=== PATIENT | male | born 1975 | race Caucasian/White ===

== ENCOUNTER 2019-01-19 13:19 | Emergency (ER) | payer OTHER ==
[~2019-01-19] VITALS: Ht 170.2 cm; Wt 78.0 kg
[2019-01-19 13:40] VITALS: BP 140/87
[2019-01-19] MEDS ORDERED: SODIUM CHLORIDE FLUSH 10 ML SYR IVF STA (13:43)
--- NOTE | 2019-01-19 13:43 | NUR ---
PT SENT TO ER LOBBY TO WAIT FOR AVAILABLE BED.
--- NOTE | 2019-01-19 14:09 | NUR ---
PT AMBULATED TO ER BED 2
[2019-01-19 14:15] LABS: APPEARANCE,URINE CLEAR (CLEAR); BILIRUBIN,URINE NEGATIVE (NEGATIVE); BLOOD, URINE NEGATIVE (NEGATIVE); COLOR,URINE YELLOW (YELLOW); LEUKOCYTE ESTERASE ,URINE TRACE (NEGATIVE); NITRITE, URINE NEGATIVE (NEGATIVE); PH,URINE 6.5 (5.0-9.0); UGLUCOSE NEGATIVE (NEGATIVE)
[2019-01-19 14:16] LABS: BASOPHILS # (AUTO) 0.1 K/uL (0.00-0.22); EOSINOPHILS # (AUTO) 0.2 K/uL (0-0.4); LYMPHOCYTES % (AUTO) 20.2 % (20.5-51.1)
[2019-01-19 14:22] LABS: BASOPHILS % (AUTO) 0.7 % (0.0-2.0); HEMATOCRIT 40.6 % (36-52); HEMOGLOBIN 13.4 g/dL (12.0-18.0); LYMPHOCYTES # (AUTO) 1.7 K/uL (2.0-11.5); MEAN CORPUSCULAR HEMOGLOBIN 31 pg (27-31); MEAN CORPUSCULAR HGB CONC 33 g/dL (33-37); MEAN CORPUSCULAR VOLUME 94.7 fL (80-94); NEUTROPHILS # (AUTO) 5.6 K/uL (1.8-7.7); NEUTROPHILS % (AUTO) 65.1 % (42.2-75.2); PLATELET COUNT (AUTO) 130 K/uL (140-450); RED BLOOD CELL COUNT(AUTO) 4.28 MIL/uL (4.20-6.10); RED CELL DISTRIBUTION WIDTH 15.5 % (11.6-13.7); WHITE BLOOD COUNT (AUTO) 8.6 K/uL (4.8-10.8)
[2019-01-19 14:29] LABS: ANION GAP 12.5 (8-16); CARBON DIOXIDE 28.1 mmol/L (21-32); CREATININE 0.6 mg/dL (0.7-1.3); POTASSIUM 3.6 mmol/L (3.5-5.1)
[2019-01-19 14:31] LABS: RBC,URINE NONE SEEN /HPF (0-5); WBC,URINE 0-5 /HPF (0-5)
[2019-01-19 14:35] LABS: ALBUMIN 3.5 g/dL (3.4-5.0); TOTAL BILIRUBIN 1.1 mg/dL (0.0-1.0)
--- NOTE | 2019-01-19 14:35 | NUR ---
PT PRESENTS TO THE ED WITH C/O PAIN AT UMBILICUS AND GROIN FOR 3 MONTHS THAT HE BELIEVES IS A HERNIA. PT STATES PAIN IS "BURNING" AND RATES PAIN 6/10 AT THIS TIME. PT STATES THAT HE DRINK ALCOHOL DAILY AND EXPERIENCES NAUSEA EVERY MORNING. PT DENIES SOB, FEVER, AND COUGH AT THIS TIME. PT IS A/OX4 AND PRESENTS WITH A CLEAR SPEECH. SKIN IS WARM, PINK, AND DRY. FAMILY MEMBER AT BEDSIDE. PT IS POSITIONED FOR COMFORT, BED RAIL UP X 1. ER MD AWARE OF PT STATUS. INO HX: DENIES RX: DENIES
--- NOTE | 2019-01-19 15:48 | NUR ---
Patient returned from CT scan. RN re-evaluating patient at bedside.
--- NOTE | 2019-01-19 16:25 | NUR ---
PT RESTING WITH FAMILY MEMBERS AT BEDSIDE. WILL CONTINUE TO MONITOR.
--- NOTE | 2019-01-19 16:39 | NUR ---
Patient being evaluated by DR. ORTIZ at bedside.
[2019-01-19 18:18] VITALS: BP 136/82
== END 2019-01-19 18:17 | disposition home or self-care (01) ==
LOC: MED 13:19
DX: R10.9 Unspecified abdominal pain (principal); K40.90 Unilateral inguinal hernia, without obstruction or gangrene, not specified as recurrent
CPT/HCPCS: 36415; 74177; 80053; 81001; 83690; 85025; 99284; Q9967

== ENCOUNTER 2019-03-07 14:04 | Emergency (ER) | payer OTHER ==
[~2019-03-07] VITALS: Ht 170.2 cm; Wt 73.9 kg
[2019-03-07 14:13] VITALS: BP 133/75
--- NOTE | 2019-03-07 14:18 | NUR ---
Patient ambulated to bed 9 with family. RN evaluating patient at bedside.
--- NOTE | 2019-03-07 14:21 | NUR ---
Dr. Alarcon is evaluating the patient at bedside.
[2019-03-07] MEDS ORDERED: NACL 0.9% 1,000 ML IV ONE (14:29)
[2019-03-07] MEDS ORDERED: NACL 0.9% 1,000 ML IV SCH (14:29)
[2019-03-07] MEDS ORDERED: ONDANSETRON 4 MG/2 ML VIAL IVP ONE (14:30)
[2019-03-07] MEDS ORDERED: KETOROLAC 30 MG/ML VIAL IVP ONE (14:30)
[2019-03-07] MEDS ORDERED: MORPHINE SULFATE 4 MG/ML SYR IVP ONE (14:30)
--- NOTE | 2019-03-07 14:31 | NUR ---
43/M BIB FAMILY C/O RT GROIN PAIN. PT HAD A RT GROIN AND UMBILICAL HERNIA REPAIR 02/24/19 AND STATES THE PAIN GOT BETTER AT FIRST BUT THEN STARTED TO GET WORSE YESTERDAY, ALONG WITH RT GROIN/TESTICULAR SWELLING. PT ALSO REPORTS ABDOMINAL BRUISING. PAIN 12/18, CONSTANT. ECCHYMOSIS ON RT FLANK. HX:NONE RX: NORCO FOR PAIN POST OP, BUT IS OUT OF MEDICATION Addendum: 03/07/19 at 1852 by MAYANK RT INGUINAL AND UMBILICAL HERNIA REPAIR
--- NOTE | 2019-03-07 14:51 | NUR ---
METER/RELAY TECHNICIAN AT BEDSIDE EXPLAINING PROCESS FOR CONTRAST/CT SCAN
[2019-03-07 15:20] LABS: BASOPHILS # (AUTO) 0.1 K/uL (0.00-0.22); BASOPHILS % (AUTO) 0.8 % (0.0-2.0); EOSINOPHILS # (AUTO) 0.2 K/uL (0-0.4); EOSINOPHILS % (AUTO) 2.4 % (0.0-4.0); HEMATOCRIT 29.9 % (36-52); HEMOGLOBIN 9.9 g/dL (12.0-18.0); LYMPHOCYTES # (AUTO) 1.4 K/uL (2.0-11.5); LYMPHOCYTES % (AUTO) 17.9 % (20.5-51.1); MEAN CORPUSCULAR HEMOGLOBIN 31 pg (27-31); MEAN CORPUSCULAR HGB CONC 33 g/dL (33-37); MEAN CORPUSCULAR VOLUME 94.3 fL (80-94); NEUTROPHILS % (AUTO) 65.9 % (42.2-75.2); PLATELET COUNT (AUTO) 447 K/uL (140-450); RED BLOOD CELL COUNT(AUTO) 3.17 MIL/uL (4.20-6.10); RED CELL DISTRIBUTION WIDTH 15.2 % (11.6-13.7); WHITE BLOOD COUNT (AUTO) 7.6 K/uL (4.8-10.8)
[2019-03-07 15:27] LABS: APPEARANCE,URINE CLEAR (CLEAR); BILIRUBIN,URINE 1+ (NEGATIVE); BLOOD, URINE NEGATIVE (NEGATIVE); COLOR,URINE YELLOW (YELLOW); LEUKOCYTE ESTERASE ,URINE NEGATIVE (NEGATIVE); NITRITE, URINE NEGATIVE (NEGATIVE); UGLUCOSE NEGATIVE (NEGATIVE)
[2019-03-07 16:06] LABS: ALBUMIN 3.2 g/dL (3.4-5.0); CARBON DIOXIDE 23.9 mmol/L (21-32); CREATININE 0.7 mg/dL (0.7-1.3); POTASSIUM 3.9 mmol/L (3.5-5.1); TOTAL BILIRUBIN 1.8 mg/dL (0.0-1.0)
--- NOTE | 2019-03-07 17:10 | NUR ---
PT TO CT SCAN VIA W/C
--- NOTE | 2019-03-07 17:10 | NUR ---
PT TAKEN TO CT
--- NOTE | 2019-03-07 18:49 | NUR ---
DR FREEMAN SPEAKING W/ PT AT BEDSIDE
[2019-03-07 19:14] VITALS: BP 110/65
--- NOTE | 2019-03-07 19:14 | NUR ---
PT DISCHARGED WITH PAPERWORK. EDUCATED PT REGARDING MEDICATIONS AND D/C DIAGNOSIS. PT VERBALIZED UNDERSTANDING OF TEACHING. TOLD PT TO FOLLOW UP WITH PCP AND WHEN TO RETURN TO ED. PT AT STABLE CONDITION. ALL QUESTIONS ANSWERED.
== END 2019-03-07 19:14 | disposition home or self-care (01) ==
LOC: MED 14:04
DX: N99.840 Postprocedural hematoma of a genitourinary system organ or structure following a genitourinary system procedure (principal); Z98.890 Other specified postprocedural states
CPT/HCPCS: 36415; 74177; 80053; 81003; 82150; 83690; 85025; 96374; 96375; 99285; J1885; J2270; J2405; J7030; Q9967

== ENCOUNTER 2020-01-08 10:01 | Emergency (ER) | payer MEDICAID, OTHER ==
[~2020-01-08] VITALS: Ht 169.5 cm; Wt 75.7 kg
--- NOTE | 2020-01-08 10:05 | NUR ---
Patient ambulated to bed 11. RN evaluating patient at bedside.
[2020-01-08 10:11] VITALS: BP 137/82
--- NOTE | 2020-01-08 10:11 | NUR ---
44 y/o male from home c/o generalized weakness and unable to see when its dark in bilateral eyes x 3 days. Pt states when it gets dark he is unable to see, but when he turns the light on he can see. Denies pain in eyes. C/O generalized body weakness with shakiness to bilateral arms. States he has not been able to sleep in 3 night. "it feels like i have anaya in my eyes. medhx: denies
--- NOTE | 2020-01-08 10:20 | NUR ---
Dr. Diehl is evaluating the patient at bedside.
--- NOTE | 2020-01-08 10:36 | NUR ---
Lab at bedside for blood draw
[2020-01-08 10:44] LABS: BASOPHILS # (AUTO) 0.1 K/uL (0.00-0.22); BASOPHILS % (AUTO) 0.6 % (0.0-2.0); EOSINOPHILS % (AUTO) 0.5 % (0.0-4.0); HEMATOCRIT 33.1 % (36-52); MEAN CORPUSCULAR HEMOGLOBIN 31 pg (27-31); MEAN CORPUSCULAR HGB CONC 33 g/dL (33-37); MEAN CORPUSCULAR VOLUME 93.9 fL (80-94); MONOCYTES # (AUTO) 1.3 K/uL (0.8-1.0); MONOCYTES % (AUTO) 14.2 % (1.7-9.3); NEUTROPHILS # (AUTO) 6.7 K/uL (1.8-7.7); NEUTROPHILS % (AUTO) 73.7 % (42.2-75.2); PLATELET COUNT (AUTO) 62 K/uL (140-450); RED BLOOD CELL COUNT(AUTO) 3.52 MIL/uL (4.20-6.10); RED CELL DISTRIBUTION WIDTH 16.6 % (11.6-13.7); WHITE BLOOD COUNT (AUTO) 9.1 K/uL (4.8-10.8)
[2020-01-08 11:02] LABS: ANION GAP 15.6 (8-16); CARBON DIOXIDE 23.8 mmol/L (21-32); CREATININE 0.6 mg/dL (0.6-1.3); POTASSIUM 3.4 mmol/L (3.5-5.1)
[2020-01-08 11:12] LABS: ALBUMIN 2.5 g/dL (3.4-5.0); BILIRUBIN,DIRECT 2.9 mg/dL (0.0-0.3); TOTAL BILIRUBIN 4.1 mg/dL (0.0-1.0)
--- NOTE | 2020-01-08 11:29 | NUR ---
Patient taken to CT scan via wheelchair by tech.
--- NOTE | 2020-01-08 11:35 | NUR ---
Patient returned from CT scan.
--- NOTE | 2020-01-08 11:59 | NUR ---
Ultrasound at bedside
[2020-01-08] MEDS ORDERED: chlordiazePOXIDE 25 MG CAP PO SCH (13:00)
[2020-01-08 13:33] VITALS: BP 134/88
--- NOTE | 2020-01-08 13:34 | NUR ---
Patient discharged with v/s stable. Written and verbal after care instructions given and explained. Patient verbalized understanding. Ambulatory with steady gait. All questions addressed prior to discharge. Advised to follow up with PMD. Pt given note for work through 01/15.
== END 2020-01-08 13:34 | disposition home or self-care (01) ==
LOC: MED 10:01
DX: R51.9 Headache, unspecified (principal); K70.30 Alcoholic cirrhosis of liver without ascites; H25.9 Unspecified age-related cataract; F10.99 Alcohol use, unspecified with unspecified alcohol-induced disorder
CPT/HCPCS: 36415; 70450; 76705; 80048; 80076; 85025; 99285; Q0092

== ENCOUNTER 2020-03-18 00:55 | Emergency (ER) | payer SELFPAY ==
[~2020-03-18] VITALS: Ht 160 cm; Wt 70.3 kg
--- NOTE | 2020-03-18 01:22 | NUR ---
Pt BIBA and taken to bed 14.
--- NOTE | 2020-03-18 01:35 | NUR ---
Blood labs collected and handed to Gabriella Singleton tech.
--- NOTE | 2020-03-18 01:36 | NUR ---
ciwa score of 7 noted at this time.
[2020-03-18 01:41] VITALS: BP 127/79
[2020-03-18 01:44] LABS: BASOPHILS % (AUTO) 0.5 % (0.0-2.0); EOSINOPHILS # (AUTO) 0.1 K/uL (0-0.4); EOSINOPHILS % (AUTO) 1.1 % (0.0-4.0); HEMATOCRIT 31.6 % (36-52); HEMOGLOBIN 10.3 g/dL (12.0-18.0); LYMPHOCYTES # (AUTO) 0.8 K/uL (2.0-11.5); LYMPHOCYTES % (AUTO) 12.6 % (20.5-51.1); MEAN CORPUSCULAR HEMOGLOBIN 30 pg (27-31); MEAN CORPUSCULAR HGB CONC 33 g/dL (33-37); MONOCYTES # (AUTO) 0.8 K/uL (0.8-1.0); MONOCYTES % (AUTO) 12.2 % (1.7-9.3); NEUTROPHILS # (AUTO) 4.6 K/uL (1.8-7.7); NEUTROPHILS % (AUTO) 73.6 % (42.2-75.2); PLATELET COUNT (AUTO) 51 K/uL (140-450); RED BLOOD CELL COUNT(AUTO) 3.44 MIL/uL (4.20-6.10); RED CELL DISTRIBUTION WIDTH 18.7 % (11.6-13.7); WHITE BLOOD COUNT (AUTO) 6.2 K/uL (4.8-10.8)
--- NOTE | 2020-03-18 01:44 | NUR ---
44 YO MALE BIBA FROM HOME.PATIENT PRESENTS TO ED WITH WITNESSED SZ. PT STATES HE DRINKS "ALOT' OF ALCOHOL BUT HAS NOT HAD A DRINK IN 2 DAYS. DENIES N/V/D; SKIN IS PINK/WARM/DRY; AAOX4 WITH EVEN AND STEADY GAIT; LUNGS CLEAR BL; HR EVEN AND REGULAR; PT DENIES ANY FEVER, CP, SOB, OR COUGH AT THIS TIME; PATIENT STATES PAIN OF 0/10 AT THIS TIME; VSS; PATIENT POSITIONED FOR COMFORT; HOB ELEVATED; BEDRAILS UP X2; BED DOWN. ER MD MADE AWARE OF PT STATUS. NO PMH AND NO RX
[2020-03-18 01:58] LABS: ALBUMIN 2.6 g/dL (3.4-5.0); ASPARTATE AMINOTRANSFERASE 65 U/L (15-37); CARBON DIOXIDE 24.7 mmol/L (21-32); CHLORIDE 99 mmol/L (98-107); CREATININE 0.8 mg/dL (0.6-1.3); GFR ARICAN-AMERICAN 134 mL/min (>90); GLUCOSE 132 mg/dL (74-106); MAGNESIUM 2.3 mg/dL (1.8-2.4); SODIUM SERUM 133 mmol/L (136-145); TOTAL BILIRUBIN 4.8 mg/dL (0.0-1.0); UREA NITROGEN, BLOOD 9 mg/dL (7-18)
[2020-03-18 02:06] LABS: POTASSIUM 2.7 mmol/L (3.5-5.1)
[2020-03-18 03:15] LABS: PROTHROMBIN TIME 19.6 secs (10.8-13.4)
[2020-03-18] MEDS: FOLIC ACID 1 MG TAB PO ONE (04:00)
[2020-03-18] MEDS: KCL 20 MEQ/WATER INJ PREMIX 100 ML IV ONE (04:01)
[2020-03-18] MEDS: THIAMINE 200 MG/2 ML VIAL IM ONE (04:02)
[2020-03-18 05:34] LABS: APPEARANCE,URINE CLEAR (CLEAR); BILIRUBIN,URINE 2+ (NEGATIVE); BLOOD, URINE TRACE-I (NEGATIVE); COLOR,URINE ORANGE (YELLOW); LEUKOCYTE ESTERASE ,URINE NEGATIVE (NEGATIVE); NITRITE, URINE NEGATIVE (NEGATIVE); PH,URINE 7.5 (5.0-9.0); UGLUCOSE NEGATIVE (NEGATIVE)
[2020-03-18] MEDS ORDERED: LORazepam 2 MG/ML VIAL ONE (05:41)
[2020-03-18] MEDS: LORazepam 2 MG/ML VIAL IVP ONE (05:44)
[2020-03-18 05:45] LABS: RBC,URINE 0-5 /HPF (0-5); WBC,URINE 0 /HPF (0-5)
--- NOTE | 2020-03-18 07:22 | NUR ---
REPORT RECEIVED FROM DOMINICK ROSARIO
[2020-03-18 07:33] VITALS: BP 124/80
--- NOTE | 2020-03-18 07:35 | NUR ---
Patient discharged with v/s stable. Written and verbal after care instructions given and explained. Patient alert, oriented and verbalized understanding of instructions. Ambulatory with steady gait. All questions addressed prior to discharge. ID band removed. Patient advised to follow up with PMD. Rx of Chlordiazepoxide hydrochloride 25mg given. Patient educated on indication of medication including possible reaction and side effects. Opportunity to ask questions provided and answered.
--- NOTE | 2020-03-21 10:58 | NUR ---
LATE ENTRY -- KRIDER 20MEW INFUSION COMPLETED AT 0601
== END 2020-03-18 07:33 | disposition home or self-care (01) ==
LOC: MED 00:55
DX: R56.9 Unspecified convulsions (principal); F10.239 Alcohol dependence with withdrawal, unspecified; Y90.9 Presence of alcohol in blood, level not specified; K76.9 Liver disease, unspecified
CPT/HCPCS: 36415; 70450; 71045; 80053; 81001; 82550; 83735; 84484; 85025; 85610; 85730; 93005; 96361; 96372; 96374; 99291; G0482; J2060; J3411; J3480

== ENCOUNTER 2020-03-25 10:06 | Emergency (ER) | payer SELFPAY ==
[~2020-03-25] VITALS: Ht 170.2 cm; Wt 80.7 kg
--- NOTE | 2020-03-25 10:13 | NUR ---
Pt to tent 1.
--- NOTE | 2020-03-25 10:13 | NUR ---
Dr. Mejia with pt for evaluation.
[2020-03-25 10:15] VITALS: BP 134/70
--- NOTE | 2020-03-25 10:15 | NUR ---
44 y/o male c/o SOB X 2weeks, worse now X2days. Pt states pain 7/10 substernal pain radiates to epigastric area. Denies N/V, fever/chills. Abdomen is large, round, non-distended/non-tender to palpation. Bowel sounds active X4, last BM 03/24/20. Denies PMH, RX NKA
[2020-03-25] MEDS: KETOROLAC 60 MG/2 ML VIAL IM ONE (10:49)
--- NOTE | 2020-03-25 11:11 | NUR ---
Patient discharged with v/s stable. Written and verbal after care instructions given and explained. Patient alert, oriented and verbalized understanding of instructions. Ambulatory with steady gait. All questions addressed prior to discharge. ID band removed. Patient advised to follow up with PMD. Rx of motrin 800mg PO PRN pain and azithromycin 250mg daily PO given. Patient educated on indication of medication including possible reaction and side effects. Opportunity to ask questions provided and answered.
[2020-03-25 11:45] VITALS: BP 134/70
== END 2020-03-25 11:11 | disposition home or self-care (01) ==
LOC: MED 10:06
DX: J18.9 Pneumonia, unspecified organism (principal); Z20.828 Contact with and (suspected) exposure to other viral communicable diseases
CPT/HCPCS: 71045; 96372; 99284; J1885; U0003

== ENCOUNTER 2020-08-09 09:29 | Inpatient (IN) | payer MEDICAID, SELFPAY ==
[~2020-08-09] VITALS: Ht 172.7 cm; Wt 74.8 kg
[2020-08-09 09:35] VITALS: BP 114/67
--- NOTE | 2020-08-09 09:41 | NUR ---
Patient ambulated to bed 4. RN evaluating the patient at bedside.
--- NOTE | 2020-08-09 10:02 | NUR ---
44 Y/O M BIB FAMILY FROM HOME, PATIENT PRESENTS TO ED WITH ABD PAIN FOR 1 WEEK. PT STATES HIS STOMACH FEELS HARD AND HIS LEGS HAVE SWELLING. UPON INSPECTION, PT HAS ROUNDED ABD, HARD AND TENDER. UPON AUSCULATATION, RUQ AND RLQ ARE HYPERACTIVE. PT HAS PITTING EDEMA +1 ON BILATERAL FEET, CAP REFILL <3. PALPABLE PULSES. DENIES N/V/D; SKIN IS PINK/WARM/DRY; AAOX4 WITH EVEN AND STEADY GAIT; LUNGS CLEAR BL; HR EVEN AND REGULAR; PT DENIES ANY FEVER, CP, SOB, OR COUGH AT THIS TIME; PATIENT STATES PAIN OF 10/10 AT THIS TIME; VSS; PATIENT POSITIONED FOR COMFORT; HOB ELEVATED; BEDRAILS UP X2; BED DOWN. ER MD MADE AWARE OF PT STATUS. PT HAS YELLOW SCLERA ON BILATERAL EYES. PMH: DENIES NKA
--- NOTE | 2020-08-09 10:31 | NUR ---
Dr. Alicea is evaluating the patient at bedside.
[2020-08-09 11:57] LABS: BASOPHILS # (AUTO) 0.1 K/uL (0.00-0.22); EOSINOPHILS % (AUTO) 0.8 % (0.0-4.0); LYMPHOCYTES # (AUTO) 0.9 K/uL (2.0-11.5); LYMPHOCYTES % (AUTO) 16.1 % (20.5-51.1); MEAN CORPUSCULAR HEMOGLOBIN 27 pg (27-31); MEAN CORPUSCULAR HGB CONC 31 g/dL (33-37); MEAN CORPUSCULAR VOLUME 85.1 fL (80-94); MONOCYTES # (AUTO) 0.7 K/uL (0.8-1.0); MONOCYTES % (AUTO) 12.4 % (1.7-9.3); NEUTROPHILS % (AUTO) 69.7 % (42.2-75.2); PLATELET COUNT (AUTO) 103 K/uL (140-450); RED CELL DISTRIBUTION WIDTH 17.1 % (11.6-13.7); WHITE BLOOD COUNT (AUTO) 5.7 K/uL (4.8-10.8)
[2020-08-09 12:01] LABS: HEMATOCRIT 17.9 % (36-52); HEMOGLOBIN 5.6 g/dL (12.0-18.0); PROTHROMBIN TIME 16.4 secs (10.8-13.4)
[2020-08-09 12:02] LABS: ALBUMIN 2.1 g/dL (3.4-5.0); ANION GAP 13.4 (8-16); CARBON DIOXIDE 23.1 mmol/L (21-32); CREATININE 0.5 mg/dL (0.6-1.3); POTASSIUM 4.5 mmol/L (3.5-5.1); TOTAL BILIRUBIN 2.9 mg/dL (0.0-1.0)
--- NOTE | 2020-08-09 12:07 | NUR ---
Dr. Alicea is reevaluating the patient at bedside.
--- NOTE | 2020-08-09 12:16 | NUR ---
EMT at bedside for EKG.
--- NOTE | 2020-08-09 12:17 | NUR ---
RAD at bedside.
--- NOTE | 2020-08-09 12:17 | NUR ---
technical sales associate at bedside.
--- NOTE | 2020-08-09 12:54 | NUR ---
PT CONSENT FOR BLOOD SIGNED.
--- NOTE | 2020-08-09 12:55 | NUR ---
Patient transported to CT via gurney.
[2020-08-09] MEDS ORDERED: DEXT 5% /NACL 0.9% 1,000 ML IV ONE (13:05)
--- NOTE | 2020-08-09 13:08 | NUR ---
Patient returned from CT via gurney. Placed back onto gambling monitor. Bed locked in lowest position, side rails x1, call light in reach.
--- NOTE | 2020-08-09 13:11 | NUR ---
Elaine blue swab collected, walked to lab and handed to CPT. Janell
--- NOTE | 2020-08-09 13:47 | NUR ---
RECEIVED REPORT FROM ER NURSE JOHNATHAN PATIENT IS AAOX4, ROOM AIR, AMBULATORY WITH CHIEF COMPLAIN OF ABDOMINAL PAIN AND DISTENTION X 1 WEEK AND BILATERAL LEG SWELLING. SKIN INTACT BILATERAL LOWER EXTREMITY EDEMA, PT JAUNDICE WITH GENERALIZED WEAKNESS, IV INTACT ON LEFT AC AND RIGHT AC, IV FLUIDS OF D5NS 0.9% RUNNING AT 35 MLS/HR.
--- NOTE | 2020-08-09 13:53 | NUR ---
Patient will be admitted to care of JUNIOR MENDOZA. Admited to TELEMETRY. Will go to room 106B. Belongings list completed. Report to BIBI TAN.
[2020-08-09] MEDS ORDERED: DOCUSATE SODIUM 100 MG GELCAP PO PRN (13:55)
[2020-08-09] MEDS ORDERED: ZOLPIDEM 5 MG TAB PO PRN (13:55)
[2020-08-09] MEDS ORDERED: POTASSIUM CHLORIDE 10 MEQ TABER PO PRN (13:55)
[2020-08-09] MEDS ORDERED: HYDROcodone/APAP 7.5/325 MG 1 TAB PO PRN (13:55)
[2020-08-09] MEDS ORDERED: guaiFENesin DM 200/20 MG-10 ML 10 ML UDC PO PRN (13:55)
[2020-08-09] MEDS ORDERED: ONDANSETRON 4 MG/2 ML VIAL IM/IVP PRN (13:55)
[2020-08-09 14:05] VITALS: BP 119/76
--- NOTE | 2020-08-09 14:05 | NUR ---
PATIENT BROUGHT TO THE UNIT VIA GURNEY ASSISTED TO BED, ORIENTED TO ROOM, CHANGED PT GOWN, CHECK VITAL SIGNS BP 119/76 WA 93 RR 18 TEMP 97.9 OXYGEN SATURATION 99%, MRSA NARES DONE AND SENT TO LAB. SAFETY MEASURES IN PLACE AND CALL LIGHT WITHIN REACH. WILL CONTINUE TO MONITOR.
--- NOTE | 2020-08-09 14:30 | NUR ---
BLOOD TRANSFUSION OF 1 UNIT PRBC STARTED VITAL SIGNS TAKEN AND PT STABLE.
[2020-08-09 14:33] LABS: APPEARANCE,URINE CLEAR (CLEAR); BILIRUBIN,URINE NEGATIVE (NEGATIVE); BLOOD, URINE NEGATIVE (NEGATIVE); COLOR,URINE YELLOW (YELLOW); LEUKOCYTE ESTERASE ,URINE NEGATIVE (NEGATIVE); NITRITE, URINE NEGATIVE (NEGATIVE); UGLUCOSE NEGATIVE (NEGATIVE)
[2020-08-09 14:42] LABS: BARBITURATE, URINE NEGATIVE ng/ml (NEG <=200); BENZODIAZEPINE, URINE NEGATIVE ng/mL (NEG <=200); CANNABINOID, URINE NEGATIVE ng/mL (NEG <=50); COCAINE, URINE NEGATIVE ng/mL (NEG <=300); OPIATE, URINE NEGATIVE ng/mL (NEG <=2000); PHENCYCLIDINE SCREEN,URINE NEGATIVE ng/mL (NEG <=25)
[2020-08-09] MEDS ORDERED: PHYTONADIONE 10 MG/ML AMP IV ONE (14:45)
[2020-08-09 14:50] LABS: CHOL/HDL RATIO 3.6 (1-4.5); PHOSPHORUS 4.2 mg/dL (2.5-4.9)
[2020-08-09 14:51] LABS: FREE T4 (FREE THYROXINE) 1.06 ng/dL (0.76-1.46); THYROID STIMULATING HORMONE 1.69 uIU/mL (0.34-3.74)
--- NOTE | 2020-08-09 15:00 | NUR ---
PATIENT CONSENTED TO EGD WITH MEDIA MANAGER SARAH ID NUMBER [id number]. DR LEE EXPLAINED THE PROCEDURE AND ANSWERED PT QUESTION. PT VERBALIZES UNDERSTANDING AND AGREED TO DO THE PROCEDURE.
[2020-08-09] MEDS ORDERED: OCTREOTIDE ACETATE 1.25 MG in NACL 0.9% 250 ML IV SCH (15:05)
[2020-08-09] MEDS ORDERED: SPIRONOLACTONE 50 MG TAB PO SCH (15:14)
[2020-08-09] MEDS ORDERED: PHYTONADIONE 10 MG in NACL 0.9% 50 ML IV SCH ×2 (15:15→19:00)
[2020-08-09] MEDS ORDERED: FUROSEMIDE 20 MG/2 ML VIAL IVP SCH (15:30)
[2020-08-09] MEDS: OCTREOTIDE ACETATE 1.25 MG in NACL 0.9% 250 ML IV SCH (15:48)
--- NOTE | 2020-08-09 15:48 | NUR ---
MEDICATION DUE GIVEN AND INFUSING WELL. DRUG SCREEN DONE SENT TO LAB.
--- NOTE | 2020-08-09 17:20 | NUR ---
BLOOD TRANSFUSION 1 UNIT PRBC COMPLETE NO TRANSFUSION REACTION.
--- NOTE | 2020-08-09 17:28 | NUR ---
VITAMIN K IV GIVEN INFUSING WELL.
--- NOTE | 2020-08-09 19:21 | NUR ---
ENDORSED TO NIGHT NURSE FOR CONTINUITY OF CARE. PT IS STABLE.
--- NOTE | 2020-08-09 19:22 | NUR ---
RECEIVED REPORT FROM DAY RN. PT IS AAOX4 ECU[place]ORE[place] SPEAKING ONLY. RESPIRATIONS ARE EQUAL AND UNLABORED ON ROOM AIR, LUNG SOUNDS ARE CLEAR. CHIEF COMPLAIN OF ABDOMINAL PAIN AND DISTENTION X 1 WEEK AND BILATERAL LEG SWELLING. PER PT HE HAD PARACENTESIS X6 MO IN [facility]. SKIN INTACT BILATERAL LOWER EXTREMITY PITTING EDEMA, PT JAUNDICE WITH GENERALIZED WEAKNESS, IV INTACT ON LEFT AC AND RIGHT AC, IV FLUIDS OF D5NS 0.9% RUNNING AT 35 MLS/HR. AND SANDOSTATIN AT 10ML/H. POC REVIEWED WITH PT. PT IS NPO FOR EGD TOMORROW. CALL LIGHT IS WITHIN REACH.
[2020-08-09 20:00] VITALS: BP 106/56
[2020-08-09] MEDS: LACTULOSE 20 GM/30 ML UDC PO SCH (20:42)
--- NOTE | 2020-08-09 20:42 | NUR ---
VSS. BALBIR LACTULOSE GIVEN. MED EDUCATION GIVEN. ALL NEEDS MET. CALL LIGHT IS WITHIN REACH.
--- NOTE | 2020-08-09 21:00 | NUR ---
SECOND UNIT OF PRBC STARTED VSS. POSSIBLE ADVERSE REACTION EXPLAINED TO PT. CALL LIGHT IS WITHIN REACH. WILL MONITOR.
--- NOTE | 2020-08-09 22:05 | NUR ---
PT IS RESTING COMFORTABLY. BLOOD TRANSFUSING NO S/S OF ADVERSE REACTION NOTED. VSS. ALL NEEDS MET. CALL LIGHT IS WITHIN REACH.
[2020-08-10] VITALS: BP 103/56
--- NOTE | 2020-08-10 00:20 | NUR ---
BLOOD TRANSFUSION COMPLETE. VSS NO ADVERSE REACTION NOTED. ALL NEEDS MET. CALL LIGHT IS WITHIN REACH.
[2020-08-10] MEDS: ACETAMINOPHEN 325 MG TAB PO PRN (00:40)
--- NOTE | 2020-08-10 02:20 | NUR ---
ROUNDS MADE. PT APPEARS TO BE ASLEEP CHEST RISE AND FALL NOTED. CALL LIGHT IS WITHIN REACH. WILL CONTINUE TO MONITOR.
[2020-08-10 04:00] VITALS: BP 115/68
--- NOTE | 2020-08-10 04:10 | NUR ---
VITAL SIGNS ARE WITHIN NORMAL LIMITS. ALL NEEDS MET. CALL LIGHT IS WITHIN REACH. WILL CONTINUE TO MONITOR.
[2020-08-10 06:16] LABS: BASOPHILS % (AUTO) 1.1 % (0.0-2.0); EOSINOPHILS # (AUTO) 0.1 K/uL (0-0.4); EOSINOPHILS % (AUTO) 1.5 % (0.0-4.0); HEMATOCRIT 22.8 % (36-52); LYMPHOCYTES # (AUTO) 0.8 K/uL (2.0-11.5); LYMPHOCYTES % (AUTO) 17.7 % (20.5-51.1); MEAN CORPUSCULAR HEMOGLOBIN 28 pg (27-31); MEAN CORPUSCULAR HGB CONC 33 g/dL (33-37); MEAN CORPUSCULAR VOLUME 85.8 fL (80-94); MONOCYTES # (AUTO) 0.6 K/uL (0.8-1.0); MONOCYTES % (AUTO) 12.8 % (1.7-9.3); NEUTROPHILS # (AUTO) 2.9 K/uL (1.8-7.7); NEUTROPHILS % (AUTO) 66.9 % (42.2-75.2); PLATELET COUNT (AUTO) 89 K/uL (140-450); RED BLOOD CELL COUNT(AUTO) 2.66 MIL/uL (4.20-6.10); RED CELL DISTRIBUTION WIDTH 16.1 % (11.6-13.7); WHITE BLOOD COUNT (AUTO) 4.3 K/uL (4.8-10.8)
[2020-08-10 06:22] LABS: HEMOGLOBIN 7.5 g/dL (12.0-18.0)
[2020-08-10 06:25] LABS: ANION GAP 12.8 (8-16); CARBON DIOXIDE 24.1 mmol/L (21-32); CREATININE 0.5 mg/dL (0.6-1.3); POTASSIUM 3.9 mmol/L (3.5-5.1)
[2020-08-10 07:08] LABS: T4 (THYROXINE) 6.7 ug/dL (4.5-12.0)
--- NOTE | 2020-08-10 07:37 | NUR ---
GAVE BEDSIDE REPORT TO DAY RN. PT ENDORSED IN STABLE CONDITION.
--- NOTE | 2020-08-10 07:39 | NUR ---
PT RECEIVED FROM RADIATOR CORE TESTER RN. PT IS RESTING IN BED COMFORTABLY. EYES OPEN NO S/S OF DISTRESS AT THIS TIME. ALL SAFETY MEASURES ARE IN PLACE. CALL LIGHT IS WITHIN REACH.
[2020-08-10 08:00] VITALS: BP 117/70
[2020-08-10] MEDS: LACTULOSE 20 GM/30 ML UDC PO SCH ×2 (08:31→20:22)
[2020-08-10] MEDS: SPIRONOLACTONE 50 MG TAB PO SCH (08:32)
--- NOTE | 2020-08-10 08:38 | NUR ---
MEDICATIONS GIVEN PER MD ORDER. PT EDUCATED. PT VERBALIZED UNDERSTANDING. PT EDUCATED TO STAY NPO, PT RE ORIENTED TO ROOM AND GIVEN CALL LIGHT . PT VERBALIZED UNDERSTANDING. ALL SAFETY MEASURES ARE IN PLACE.
[2020-08-10] MEDS ORDERED: PANTOPRAZOLE 40 MG INJ VIAL IVP SCH (09:00)
--- NOTE | 2020-08-10 09:09 | NUR ---
PATIENT HAS BEEN SCREENED AND CATEGORIZED MODERATE NUTRITION RISK. PATIENT WILL BE SEEN WITHIN 3-5 DAYS OF ADMISSION. 08/12/20 08/14/20 FNS REFERRAL RECEIVED NOT APPROPRIATE FOR REASON MARKED " NOT APPLICABLE" AND PT HAS NO OTHER HIGH RISK FACTORS. GEOVANNA TINOCO RD
[2020-08-10 12:00] VITALS: BP 119/66
--- NOTE | 2020-08-10 12:30 | NUR ---
AT BEDSIDE. PT VERBALIZED UNDERSTANDING OF PROCEDURE NO QUESTIONS. HE CLAIMS HE HAD THIS PROCEDURE DONE 6 MONTHS AGO AT [facility].
[2020-08-10] MEDS ORDERED: diphenhydrAMINE 50 MG/ML VIAL ONE (13:12)
[2020-08-10] MEDS ORDERED: MIDAZOLAM 5 MG/5 ML VIAL ONE (13:13)
[2020-08-10] MEDS ORDERED: fentaNYL citrate 0.05 MG/ML VIAL ONE (13:13)
--- NOTE | 2020-08-10 13:22 | NUR ---
PT LEFT UNIT FOR PROCEDURE
--- NOTE | 2020-08-10 14:25 | NUR ---
PT ARRIVED BACK FROM PROCEDURE. PT IS IN STABLE CONDITION DENIES PAIN AT THIS TIME.
[2020-08-10] MEDS ORDERED: fentaNYL citrate 0.05 MG/ML VIAL IVP ONE (14:40)
[2020-08-10] MEDS ORDERED: MIDAZOLAM 2 MG/2 ML VIAL IVP ONE (14:40)
[2020-08-10] MEDS: OCTREOTIDE ACETATE 1.25 MG in NACL 0.9% 250 ML IV SCH ×2 (15:23→19:40)
--- NOTE | 2020-08-10 15:26 | NUR ---
PT AMBULATED TO RESTROOM PT TOLERATED WELL. NO S/S OF DISTRESS AT THIS TIME
[2020-08-10 16:00] VITALS: BP 123/72
[2020-08-10] MEDS: METOCLOPRAMIDE 10 MG/2 ML INJ VIAL IVP SCH ×2 (16:04→22:23)
--- NOTE | 2020-08-10 16:06 | NUR ---
MEDICATIONS GIVEN PER MD ORDER. PT EDUCATED. PT VERBALIZED UNDERSTANDING. PO, PT RE ORIENTED TO ROOM AND GIVEN CALL LIGHT . PT VERBALIZED UNDERSTANDING. ALL SAFETY MEASURES ARE IN PLACE.
[2020-08-10] MEDS: FERROUS SULFATE 325 MG TABEC PO SCH (17:23)
--- NOTE | 2020-08-10 17:26 | NUR ---
MEDICATIONS GIVEN PER MD ORDER. PT EDUCATED VERBALIZED UNDERSTANDING. PT RESTING BED. CALL LIGHT WITHIN REACH
--- NOTE | 2020-08-10 19:29 | NUR ---
PT ENDORSED TO NAILER HAND RN FOR CONTINUITY OF CARE.
--- NOTE | 2020-08-10 19:30 | NUR ---
RECEIVED REPORT AND CARE FROM DAYSHIFT RN. PATIENT ALERT AND ORIENTED X4 TO PERSON, PLACE, TIME AND EVENT, TAM[place] SPEAKING, UNDERSTANDS MOST CITIZEN OF [place] AND [place]. PATIENT RESTING IN A POSITION OF COMFORT WITH THE HOB 30 DEGREES, AIRWAY OPEN PATENT, CLEAR AND MAINTAINABLE, ON ROOM AIR, OXYGEN SATURATION AT 96%. PATIENT HAS FEEDING ORDER OF FULL LIQUID DIET, TOLERATING WELL. PATIENT CONNECTED TO CONTINUOUS TELE MONITOR, NSR IN TELE AT 93 HR. WILL CONTINUE TO CLOSELY MONITOR. ABDOMEN IS DISTENDED WITH ASCITES, S/P PARACENTESIS EARLIER IN THE DAY, REMOVAL OF 5L PER DAYSHIFT RN. PATIENT ALSO HAS REGULAR TREMORS IN UPPER EXTREMITIES REPORTED BY DAYSHIFT RN. PATIENT HAS IV SITES OF A LEFT AC 20G AND RIGHT AC 20G, DRESSINGS DRY, INTACT, SITE FLUSHING WELL. IV DRIPS RUNNING INCLUDE SANDOSTATIN RUNNING AT 10 ML/HR, BAG DRY AT SHIFT CHANGE, REPLACED TO NEW BAG TO CONTINUE THERAPY AT 1940 HOURS. PATIENT DRY WEIGHT IS APPROXIMATELY 74.8 KG. PATIENT CURRENTLY ABLE TO AMBULATE WITH RN ASSISTANCE AND ABLE TO USE BEDSIDE URINAL. PATIENT DENIES ANY PAIN WHEN ASKED. PATIENT IS CURRENTLY BEING OFFLOADED FROM PRESSURE POINTS WITH USE OF PILLOWS AND FREQUENT REPOSITIONING, EDUCATED ON THE IMPORTANCE OF REPOSITIONING FOR WOUND PREVENTION. THE CALL LIGHT IS PLACED WITHIN REACH AT THE BEDSIDE AND EDUCATED/FAMILIARIZED WITH CONTROLS AND ENVIRONMENT. PROMOTING A RESTFUL ENVIRONMENT WITH DECREASED STIMULI IN THE ROOM. WILL CONTINUE TO REASSESS OFTEN, CLOSELY MONITOR AND FREQUENTLY ROUND THROUGHOUT THE SHIFT.
--- NOTE | 2020-08-10 19:40 | NUR ---
SANDOSTATIN DRIP FINISHED AT BEGINNING OF SHIFT, REPLACING WITH NEW BAG TO CONTINUE THERAPY PER MD ORDERS. WILL CONTINUE TO REASSESS OFTEN, CLOSELY MONITOR AND FREQUENTLY ROUND.
[2020-08-10 20:00] VITALS: BP 112/76
--- NOTE | 2020-08-10 20:30 | NUR ---
SCHEDULED MEDICATIONS GIVEN ORDERED BY MD, WILL CONTINUE TO CLOSELY MONITOR AND FREQUENTLY ROUND.
--- NOTE | 2020-08-10 20:35 | NUR ---
ECG TECH AT BEDSIDE PERFORM ECHO OF HEART PER ORDER, WILL CONTINUE TO CLOSELY MONITOR AND FREQUENTLY ROUND.
[2020-08-10 21:16] LABS: GLUCOSE,BODY FLUID 142 mg/dL
[2020-08-10 21:17] LABS: APPEARANCE,UNSPUN,BODY FLUID BLOODY (CLEAR); SPECIMENTYPE,BODY FLUID PARACENTESIS
[2020-08-10 21:18] LABS: APPEARANCE,SPUN,BODY FLUID CLEAR (CLEAR); COLOR,BODY FLUID RED (LT YELLOW); POLYNUCLEAR, BODY FLUID 89 %; RBC, BODY FLUID 50000 /cu. mm.; TOTAL VOLUME,BODY FLUID 75 mL; WBC, BODY FLUID 200 /cu. mm.
--- NOTE | 2020-08-10 21:24 | NUR ---
PATIENT ASLEEP, RESTING IN A POSITION OF COMFORT, NO OBVIOUS SIGNS OF DISTRESS OBSERVED WHILE AT BEDSIDE, WILL CONTINUE TO CLOSELY MONITOR AND FREQUENTLY ROUND.
--- NOTE | 2020-08-10 23:40 | NUR ---
PATIENT RESTING IN A POSITION OF COMFORT, DENIES ANY PAIN WHEN ASKED. PATIENT WATCHING TV, NO OBVIOUS SIGNS OF DISTRESS OBSERVED WHILE AT BEDSIDE, PATIENT STATED HE FEELS FINE WHEN ASKED. WILL CONTINUE TO REASSESS OFTEN, CLOSELY MONITOR AND FREQUENTLY ROUND.
[2020-08-11] VITALS: BP 108/68
--- NOTE | 2020-08-11 01:10 | NUR ---
PATIENT ASLEEP, NO SIGNS OF DISTRESS OBSERVED WHILE AT BEDSIDE. TOLERATING CURRENT INTERVENTIONS WELL. WILL CONTINUE TO REASSESS OFTEN, CLOSELY MONITOR AND FREQUENTLY ROUND.
--- NOTE | 2020-08-11 03:30 | NUR ---
PATIENT CONTINUES TO SLEEP, HOB 30 DEGREES, AIRWAY OPEN, CLEAR AND MAINTAINABLE. NO OBVIOUS SIGNS OF DISTRESS OBSERVED WHILE AT BEDSIDE. CONTINUES TO TOLERATE INTERVENTIONS WELL. IV SITE INTACT. WILL CONTINUE TO REASSESS OFTEN, CLOSELY MONITOR AND FREQUENTLY ROUND.
[2020-08-11 04:00] VITALS: BP 130/73
--- NOTE | 2020-08-11 05:25 | NUR ---
PATIENT ALERT, RESTING AWAKE, DENIES ANY PAIN WHEN ASKED, STATED FEELING FINE. NO OBVIOUS SIGNS OF DISTRESS OBSERVED WHILE AT BEDSIDE. WILL CONTINUE TO REASSESS OFTEN, CLOSELY MONITOR AND FREQUENTLY ROUND.
[2020-08-11 06:14] LABS: BASOPHILS % (AUTO) 0.7 % (0.0-2.0); EOSINOPHILS % (AUTO) 1.1 % (0.0-4.0); HEMATOCRIT 22.2 % (36-52); HEMOGLOBIN 7.3 g/dL (12.0-18.0); LYMPHOCYTES # (AUTO) 0.8 K/uL (2.0-11.5); LYMPHOCYTES % (AUTO) 20.5 % (20.5-51.1); MEAN CORPUSCULAR HEMOGLOBIN 28 pg (27-31); MEAN CORPUSCULAR HGB CONC 33 g/dL (33-37); MEAN CORPUSCULAR VOLUME 84.4 fL (80-94); MONOCYTES # (AUTO) 0.6 K/uL (0.8-1.0); MONOCYTES % (AUTO) 14.8 % (1.7-9.3); NEUTROPHILS # (AUTO) 2.6 K/uL (1.8-7.7); NEUTROPHILS % (AUTO) 62.9 % (42.2-75.2); PLATELET COUNT (AUTO) 82 K/uL (140-450); RED BLOOD CELL COUNT(AUTO) 2.62 MIL/uL (4.20-6.10); RED CELL DISTRIBUTION WIDTH 16.6 % (11.6-13.7); WHITE BLOOD COUNT (AUTO) 4.1 K/uL (4.8-10.8)
[2020-08-11 06:29] LABS: ANION GAP 10.8 (8-16); CARBON DIOXIDE 23.8 mmol/L (21-32); CREATININE 0.6 mg/dL (0.6-1.3); POTASSIUM 3.6 mmol/L (3.5-5.1)
[2020-08-11] MEDS: METOCLOPRAMIDE 10 MG/2 ML INJ VIAL IVP SCH ×3 (06:51→23:52)
--- NOTE | 2020-08-11 07:30 | NUR ---
ENDORSED CARE AND REPORT GIVEN TO DAYSHIFT RN, VS STABLE.
--- NOTE | 2020-08-11 07:35 | NUR ---
RECEIVED PT FROM MAIL HANDLER ASSISTANT NURSE, PT IS AWAKE AND SEATED ON THE BED WITH SIDE RAILS UP AND CALL LIGHT WITHIN REACH, IV LINES NOTED ON THE RIGHT AND LEFT AC G. 20 WITH OCTREOTIDE INFUSING. PT IS ON RA, DENIES PAIN, AND NO SIGN OF DISTRESS NOTED. WILL CONTINUE TO MONITOR PT.
[2020-08-11 08:00] VITALS: BP 136/79
[2020-08-11] MEDS: FERROUS SULFATE 325 MG TABEC PO SCH ×2 (09:31→16:30)
[2020-08-11] MEDS: SPIRONOLACTONE 50 MG TAB PO SCH ×2 (09:32→09:39)
[2020-08-11] MEDS: LACTULOSE 20 GM/30 ML UDC PO SCH ×2 (09:32→20:49)
[2020-08-11] MEDS: FUROSEMIDE 20 MG TAB PO SCH (09:33)
--- NOTE | 2020-08-11 09:33 | NUR ---
PT WAS GIVEN THE SCHEDULED AM MEDICATIONS NOW, TOLERATED AND WILL CONTINUE TO MONITOR PT.
--- NOTE | 2020-08-11 11:33 | NUR ---
PT'S IV LINES WERE ASSESSED AND REINFORCED. INTACT AND PATENT.
[2020-08-11 12:00] VITALS: BP 133/75
--- NOTE | 2020-08-11 13:52 | NUR ---
PT IS SLEEPING NOW, NO SIGN OF DISTRESS NOTED.
--- NOTE | 2020-08-11 14:13 | NUR ---
LATE ENTRY -- D5NS INFUSION STOPPED AT 1355 FOR TRANSFER TO INPATIENT UNIT. [facility]
--- NOTE | 2020-08-11 15:40 | NUR ---
PT WAS ASSISTED TO THE BATHROOM AND PT MADE A BOWEL MOVEMENT, LOOSE AND MODERATE IN AMOUNT.
[2020-08-11 16:00] VITALS: BP 141/85
--- NOTE | 2020-08-11 16:31 | NUR ---
PT WAS GIVEN THE SCHEDULED IV PUSH AND ORAL MEDICATIONS NOW, TOLERATED AND NO SIGN OF DISTRESS NOTED.
--- NOTE | 2020-08-11 19:30 | NUR ---
ENDORSED PT TO CARGO SERVICES COORDINATOR NURSE FOR CONTINUITY OF CARE.
--- NOTE | 2020-08-11 20:00 | NUR ---
PATIENT WAS RECEIVED IN HIS BED ALERT AND ORIENTED X 4 ROMANSH SPEAKING, NO S/S OF DISTRESS
--- NOTE | 2020-08-11 21:00 | NUR ---
PATIENT HAD FEVER TEMP 101.2 F, TYLENOL 650 MG BY MOUTH WAS GIVEN
--- NOTE | 2020-08-11 21:00 | NUR ---
PATIENT SEEN IN BED, DUE MEDICATION WAS ADMINISTERED, TOLERATED WELL BY THE PATIENT, PATIENT REQUESTED SLEEPING PILL, RN ADMINISTERED AMBIEN FOR SLEEP PLEASE SEE EMAR.
[2020-08-11 23:19] VITALS: BP 134/67
[2020-08-11] MEDS: ACETAMINOPHEN 325 MG TAB PO PRN (23:22)
--- NOTE | 2020-08-12 | NUR ---
TYLENOL 650 MG WAS EFFECTIVE, TEMP WENT DOWN TO 99.6 F AROUND 2300 08/11/20. CONTINUE APPLYING COOLING MEASURES, COOL PACK IN THE ARM PITS AND FORE HEAD.
[2020-08-12 04:00] VITALS: BP 117/75
--- NOTE | 2020-08-12 05:00 | NUR ---
TEMP RECHECKED IT WENT FARTHER DOWN TO 99.3 F.
[2020-08-12 06:37] LABS: BASOPHILS # (AUTO) 0.1 K/uL (0.00-0.22); BASOPHILS % (AUTO) 1.1 % (0.0-2.0); EOSINOPHILS # (AUTO) 0.1 K/uL (0-0.4); EOSINOPHILS % (AUTO) 1.4 % (0.0-4.0); HEMATOCRIT 22.4 % (36-52); HEMOGLOBIN 7.4 g/dL (12.0-18.0); LYMPHOCYTES # (AUTO) 0.8 K/uL (2.0-11.5); LYMPHOCYTES % (AUTO) 17.5 % (20.5-51.1); MEAN CORPUSCULAR HEMOGLOBIN 28 pg (27-31); MEAN CORPUSCULAR HGB CONC 33 g/dL (33-37); MEAN CORPUSCULAR VOLUME 85.7 fL (80-94); MONOCYTES # (AUTO) 0.9 K/uL (0.8-1.0); NEUTROPHILS # (AUTO) 2.8 K/uL (1.8-7.7); PLATELET COUNT (AUTO) 81 K/uL (140-450); RED BLOOD CELL COUNT(AUTO) 2.61 MIL/uL (4.20-6.10); WHITE BLOOD COUNT (AUTO) 4.6 K/uL (4.8-10.8)
[2020-08-12 06:41] LABS: ANION GAP 10.4 (8-16); CREATININE 0.6 mg/dL (0.6-1.3); POTASSIUM 3.4 mmol/L (3.5-5.1)
[2020-08-12] MEDS: METOCLOPRAMIDE 10 MG/2 ML INJ VIAL IVP SCH (07:10)
--- NOTE | 2020-08-12 07:30 | NUR ---
REPORT GIVEN TO INCOMING RN, CARE ENDORSED.
--- NOTE | 2020-08-12 07:30 | NUR ---
RECEIVED BEDSIDE REPORT FROM MARBLE CEILING INSTALLER NURSE. PATIENT IS AWAKE, ALERT, AND COOPERATIVE. RESPIRATION EVEN UNLABORED ON ROOM AIR. NO DISTRESS NOTED. SKIN IS WARM AND DRY. IV PATENT AND INTACT. PLAN OF CARE WAS DISCUSSED. ALL SAFETY MEASURES IN PLACE. BED IS AT LOW POSITION. CALL LIGHT WITHIN REACH. WILL CONTINUE TO MONITOR.
[2020-08-12 08:00] VITALS: BP 110/81
[2020-08-12] MEDS: SPIRONOLACTONE 50 MG TAB PO SCH (08:27)
[2020-08-12] MEDS: FUROSEMIDE 20 MG TAB PO SCH (08:27)
[2020-08-12] MEDS: FERROUS SULFATE 325 MG TABEC PO SCH (08:27)
[2020-08-12] MEDS: LACTULOSE 20 GM/30 ML UDC PO SCH (08:28)
--- NOTE | 2020-08-12 08:30 | NUR ---
ALL SCHEDULED MEDS WERE GIVEN PER ORDER WILL CONTINUE TO MONITOR
[2020-08-12] MEDS ORDERED: SPIR50TA PO (10:12)
[2020-08-12] MEDS ORDERED: POTA10TE30 PO (10:12)
[2020-08-12] MEDS ORDERED: FURO-572 PO (10:12)
[2020-08-12] MEDS ORDERED: LACT-103 PO (10:12)
[2020-08-12] MEDS ORDERED: FERR325E14 PO (10:12)
--- NOTE | 2020-08-12 10:45 | NUR ---
INFORMED PATIENT THAT HIS GOING TO BE DISCHARGED TODAY BY MD ORDERS. NO FURTHER QUESTION AT THIS TIME
[2020-08-12 11:20] VITALS: BP 110/68
--- NOTE | 2020-08-12 11:50 | NUR ---
PATIENT LEFT THE FACILITY, HEADING HOME. ALL PAPERWORK ARE SIGNED. EDUCATED PATIENT ON MEDICATION, APPOINTMENT AND DISCHARGE INSTRUCTION PATIENT VERBALIZES UNDERSTANDING.
== END 2020-08-12 11:55 | disposition home or self-care (01) ==
LOC: MED 09:29 → MTU 13:06
PROVIDERS: ADMIT Family Medicine; ATTEND Family Medicine
PROC: 30233N1 Transfusion of Nonautologous Red Blood Cells into Peripheral Vein, Percutaneous Approach (ICD-10-PCS; 2020-08-09)
PROC: 0W9G3ZZ Drainage of Peritoneal Cavity, Percutaneous Approach (ICD-10-PCS; 2020-08-10)
PROC: 06L38CZ Occlusion of Esophageal Vein with Extraluminal Device, Via Natural or Artificial Opening Endoscopic (ICD-10-PCS; principal; 2020-08-10 13:30)
DX: K74.60 Unspecified cirrhosis of liver (principal); E43 Unspecified severe protein-calorie malnutrition; D61.818 Other pancytopenia; I85.10 Secondary esophageal varices without bleeding; E87.1 Hypo-osmolality and hyponatremia; E83.51 Hypocalcemia; I50.9 Heart failure, unspecified; R18.8 Other ascites; K72.00 Acute and subacute hepatic failure without coma; K72.10 Chronic hepatic failure without coma; D50.9 Iron deficiency anemia, unspecified; F10.10 Alcohol abuse, uncomplicated; Y90.9 Presence of alcohol in blood, level not specified; E78.5 Hyperlipidemia, unspecified; Z20.822 Contact with and (suspected) exposure to COVID-19; R74.01 Elevation of levels of liver transaminase levels; Z68.25 Body mass index [BMI] 25.0-25.9, adult
CPT/HCPCS: 36415; 49083; 71045; 76705; 80048; 80053; 80305; 81003; 82105; 82150; 82272; 82945; 83036; 83615; 83690; 83735; 83880; 84100; 84157; 84436; 84439; 84443; 84479; 84484; 85025; 85610; 85730; 86886; 86900; 86901; 86920; 87070; 87075; 87081; 87205; 89051; 93005; 96361; 96374; 99291; C9113; J1200; J1940; J2001; J2250; J2354; J2765; J3010; J3430; J7030; P9016

== ENCOUNTER 2020-09-07 07:03 | Emergency (ER) | payer MEDICAID, SELFPAY ==
[~2020-09-07] VITALS: Ht 167.6 cm; Wt 65.3 kg
[~2020-09-07 07:03] MED LIST: FERR325E14 PO; FURO-572 PO; LACT-103 PO; POTA10TE30 PO; SPIR50TA PO
[2020-09-07 07:07] VITALS: BP 107/64
[2020-09-07 08:53] VITALS: BP 107/64
== END 2020-09-07 08:53 | disposition home or self-care (01) ==
LOC: MED 07:03
DX: K74.60 Unspecified cirrhosis of liver (principal); R18.8 Other ascites; Z79.899 Other long term (current) drug therapy; Z98.890 Other specified postprocedural states
CPT/HCPCS: 99281

== ENCOUNTER 2020-10-20 18:46 | Inpatient (IN) | payer OTHER, SELFPAY ==
[~2020-10-20] VITALS: Ht 172.7 cm; Wt 72.6 kg
[2020-10-20 19:07] VITALS: BP 124/59
--- NOTE | 2020-10-20 19:46 | NUR ---
PT AMBULATED TO BED 09 WITH EVEN AND STEADY GAIT.
--- NOTE | 2020-10-20 19:47 | NUR ---
PT BIB SELF WITH C/C ABDOMINAL PAIN AND BILATERAL LOWER EXTREMITY SWELLING. PT REPORTS HX OF ASCITES, LAST SEEN AT [facility] FOR PARACENTESIS X 2 WEEKS AGO. SCLERA AND SKIN JAUNDICED. ABDOMEN LARGE ROUND AND FIRM. PT AMBULATORY. A & O X 4. MED HX: ASCITES ALLERGIES: NKA Addendum: 10/21/20 at 0204 by MEDLS1 UMBILICA HERNIA NOTED WITH SCABBING TO SITE. NO DRAINAGE.
[2020-10-20 20:07] LABS: BASOPHILS % (AUTO) 0.8 % (0.0-2.0); EOSINOPHILS # (AUTO) 0.1 K/uL (0-0.4); EOSINOPHILS % (AUTO) 2.3 % (0.0-4.0); HEMATOCRIT 24.6 % (36-52); HEMOGLOBIN 8.7 g/dL (12.0-18.0); LYMPHOCYTES # (AUTO) 2.1 K/uL (2.0-11.5); LYMPHOCYTES % (AUTO) 38.9 % (20.5-51.1); MEAN CORPUSCULAR HEMOGLOBIN 36 pg (27-31); MEAN CORPUSCULAR HGB CONC 36 g/dL (33-37); MEAN CORPUSCULAR VOLUME 101.3 fL (80-94); MONOCYTES # (AUTO) 0.7 K/uL (0.8-1.0); MONOCYTES % (AUTO) 12.5 % (1.7-9.3); NEUTROPHILS # (AUTO) 2.5 K/uL (1.8-7.7); NEUTROPHILS % (AUTO) 45.5 % (42.2-75.2); PLATELET COUNT (AUTO) 40 K/uL (140-450); RED BLOOD CELL COUNT(AUTO) 2.43 MIL/uL (4.20-6.10); RED CELL DISTRIBUTION WIDTH 24.3 % (11.6-13.7); WHITE BLOOD COUNT (AUTO) 5.5 K/uL (4.8-10.8)
[2020-10-20 20:20] LABS: PROTHROMBIN TIME 15.9 secs (10.8-13.4)
[2020-10-20 20:25] LABS: ALBUMIN 2.4 g/dL (3.4-5.0); ANION GAP 10.9 (8-16); CARBON DIOXIDE 25.4 mmol/L (21-32); CREATININE 0.6 mg/dL (0.6-1.3); POTASSIUM 3.3 mmol/L (3.5-5.1); TOTAL BILIRUBIN 7.4 mg/dL (0.0-1.0)
--- NOTE | 2020-10-20 20:55 | NUR ---
CONSENT OBTAINED FOR PARACENTESIS. REAGENT TENDER HELPER SERVICES USED: UNIQUE ID# [id number].
[2020-10-20 21:08] LABS: APPEARANCE,URINE CLEAR (CLEAR); BILIRUBIN,URINE NEGATIVE (NEGATIVE); BLOOD, URINE NEGATIVE (NEGATIVE); COLOR,URINE YELLOW (YELLOW); LEUKOCYTE ESTERASE ,URINE NEGATIVE (NEGATIVE); NITRITE, URINE NEGATIVE (NEGATIVE); UGLUCOSE NEGATIVE (NEGATIVE)
--- NOTE | 2020-10-20 22:20 | NUR ---
ERMD AT BEDSIDE FOR PARACENTESIS PROCEDURE.
--- NOTE | 2020-10-20 22:30 | NUR ---
PARACENTESIS SITE TO LEFT ABDOMEN NOTED WITH CONTINUOS DRAINAGE. ERMD AWARE, WILL PERFORM SUTURE WITH PRESSURE DRESSING.
--- NOTE | 2020-10-20 22:35 | NUR ---
TOTAL PARACENTESIS OUTPUT: 5125 ML.
[2020-10-20] MEDS ORDERED: ALBUMIN HUMAN 5 % 250 ML IV ONE (22:45)
[2020-10-20] MEDS ORDERED: KCL 20 MEQ/WATER INJ PREMIX 100 ML IV ONE (22:45)
[2020-10-20] MEDS ORDERED: MAG SULF 2000 MG/WATER PREMIX 50 ML IV ONE (22:45)
--- NOTE | 2020-10-20 22:50 | NUR ---
LAB AT BEDSIDE.
[2020-10-20] MEDS ORDERED: cefTRIAXone 1,000 MG VIAL ONE (22:54)
--- NOTE | 2020-10-20 23:30 | NUR ---
PARACENTESIS SITE REMAINS WITH PRESSURE DRESSING. NO EXCESSIVE DRAINAGE NOTED. PT DENIES PAIN OR DISCOMFORT.
[2020-10-20] MEDS ORDERED: ZOLPIDEM 5 MG TAB PO PRN (23:50)
[2020-10-20] MEDS ORDERED: ONDANSETRON 4 MG/2 ML VIAL IM/IVP PRN (23:50)
[2020-10-20] MEDS ORDERED: guaiFENesin DM 200/20 MG-10 ML 10 ML UDC PO PRN (23:50)
[2020-10-20] MEDS ORDERED: DOCUSATE SODIUM 100 MG GELCAP PO PRN (23:50)
[2020-10-20] MEDS ORDERED: ACETAMINOPHEN 325 MG TAB PO PRN (23:50)
--- NOTE | 2020-10-20 23:57 | NUR ---
XRAY AT BEDSIDE.
--- NOTE | 2020-10-21 00:05 | NUR ---
RT AT BEDSIDE FOR EKG.
--- NOTE | 2020-10-21 00:07 | NUR ---
SWAB FOR MIKE DONE AND SENT TO LAB
--- NOTE | 2020-10-21 00:19 | NUR ---
700 CC YELLOW, CLEAR URINE IN BEDSIDE URINAL.
[2020-10-21 00:33] LABS: BARBITURATE, URINE NEGATIVE ng/ml (NEG <=200); BENZODIAZEPINE, URINE NEGATIVE ng/mL (NEG <=200); CANNABINOID, URINE NEGATIVE ng/mL (NEG <=50); COCAINE, URINE NEGATIVE ng/mL (NEG <=300); OPIATE, URINE NEGATIVE ng/mL (NEG <=2000); PHENCYCLIDINE SCREEN,URINE NEGATIVE ng/mL (NEG <=25)
[2020-10-21 01:09] LABS: CHOL/HDL RATIO 2.9 (1-4.5); FREE T4 (FREE THYROXINE) 1.13 ng/dL (0.76-1.46); PHOSPHORUS 3.6 mg/dL (2.5-4.9); THYROID STIMULATING HORMONE 1.44 uIU/mL (0.34-3.74)
--- NOTE | 2020-10-21 01:55 | NUR ---
PT UNABLE TO RECALL FULL MEDICATION RECONCILIATION.
--- NOTE | 2020-10-21 02:00 | NUR ---
Patient appears to be resting comfortably in bed. Vital Signs within normal limits. Respirations even and unlabored. PT DENIES PAIN OR DISCOMORT AT THIS TIME. PRESSURE DRESSING REMAINS INTACT, NO DRAINAGE NOTED. PROVIDED ADDITIONAL WARM BLANKET FOR COMFORT.
--- NOTE | 2020-10-21 03:18 | NUR ---
CRITICAL LAB VALUE: LACTIC ACID 2.5. MD PACHECO NOTIFIED VIA TEXT. AWAITING RESPONSE.
--- NOTE | 2020-10-21 04:34 | NUR ---
PROVIDED PT URINAL AT BEDSIDE.
--- NOTE | 2020-10-21 04:45 | NUR ---
600 CC CLEAR, CARLOS URINE NOTED IN BEDSIDE URINAL. PT DENIES PAIN OR DISCOMFORT. RESTING COMFORTABLY IN BED WITH EYES CLOSED.
--- NOTE | 2020-10-21 06:00 | NUR ---
Patient appears to be resting comfortably in bed. Vital Signs within normal limits. Respirations even and unlabored. EYES CLOSED. PT DOES NOT APPEAR TO BE IN ANY PAIN OR DISCOMFORT.
--- NOTE | 2020-10-21 06:48 | NUR ---
PRESSURE DRESSING NOTED TO BE COMING OFF. REMOVED AND APPLIED NEW PRESSURE DRESSING. SUTURE REMAINS INTACT. NO DRAINING NOTED.
[2020-10-21 07:17] LABS: BASOPHILS % (AUTO) 0.8 % (0.0-2.0); EOSINOPHILS # (AUTO) 0.1 K/uL (0-0.4); EOSINOPHILS % (AUTO) 2.3 % (0.0-4.0); HEMATOCRIT 22.4 % (36-52); HEMOGLOBIN 7.8 g/dL (12.0-18.0); LYMPHOCYTES # (AUTO) 1.2 K/uL (2.0-11.5); LYMPHOCYTES % (AUTO) 38.4 % (20.5-51.1); MEAN CORPUSCULAR HEMOGLOBIN 36 pg (27-31); MEAN CORPUSCULAR HGB CONC 35 g/dL (33-37); MEAN CORPUSCULAR VOLUME 102.4 fL (80-94); MONOCYTES # (AUTO) 0.6 K/uL (0.8-1.0); MONOCYTES % (AUTO) 17.5 % (1.7-9.3); NEUTROPHILS # (AUTO) 1.3 K/uL (1.8-7.7); PLATELET COUNT (AUTO) 31 K/uL (140-450); RED BLOOD CELL COUNT(AUTO) 2.18 MIL/uL (4.20-6.10); RED CELL DISTRIBUTION WIDTH 24.3 % (11.6-13.7); WHITE BLOOD COUNT (AUTO) 3.2 K/uL (4.8-10.8)
--- NOTE | 2020-10-21 07:17 | NUR ---
REPORT GIVEN TO DOMINICK COLON FOR CONTINUITY OF CARE.
--- NOTE | 2020-10-21 07:17 | NUR ---
Report and continuation of care received from DOMINICK Villar.
[2020-10-21 07:27] LABS: ANION GAP 11.9 (8-16); CARBON DIOXIDE 24.3 mmol/L (21-32); CREATININE 0.5 mg/dL (0.6-1.3); POTASSIUM 3.2 mmol/L (3.5-5.1)
--- NOTE | 2020-10-21 07:55 | NUR ---
Report given to DOMINICK Lynn. Advised of delayed ETA due to multiple [facility] patients being transported.
[2020-10-21 08:00] VITALS: BP 101/57
--- NOTE | 2020-10-21 08:02 | NUR ---
PROJECT ACCOUNT MANAGER LONG CALLED TO GIVE REPORT. WILL WAIT FOR PT TO ARRIVE.
--- NOTE | 2020-10-21 08:15 | NUR ---
Patient resting in position of comfort. environmental air specialist in place; no distress noted. VSS. Bed locked in lowest position, side rails x 1, call light in reach.
[2020-10-21] MEDS: PANTOPRAZOLE 40 MG TABEC PO SCH (09:00)
--- NOTE | 2020-10-21 09:15 | NUR ---
Patient will be admitted to care of Dr. Henry. Admited to Med/Surg. Will go to room 110-A. Belongings list completed. Report to Laura Lynn.
--- NOTE | 2020-10-21 10:06 | NUR ---
ADMINISTERED SCHEDULED MEDICATIONS PER MD ORDER. EDUCATED PT ON MEDICATIONS MOA AND SIDE EFFECTS. PT VERBALIZED UNDERSTANDING. PT HAS UNCONTROLLED SHAKING. PT HAS GENERALIZED JAUNDICE. PT IS NOT UNDER ACUTE DISTRESS AND IS SLEEPING. CALL LIGHT IS WITHIN REACH. SAFETY PRECAUTIONS ARE IN PLACE. WILL CONTINUE TO MONITOR.
[2020-10-21 12:00] VITALS: BP 115/60
[2020-10-21] MEDS: POTASSIUM CHLORIDE 10 MEQ TABER PO PRN (12:44)
--- NOTE | 2020-10-21 12:45 | NUR ---
ADMINISTERED 40MEQ K DUR FOR POTASSIUM LEVEL OF 3.2L. EDUCATED PT ON MEDICATIONS MOA AND SIDE EFFECTS. PT VERBALIZED UNDERSTANDING. WILL PLACE PT ON SEIZURE PRECAUTIONS. PT IS NOT UNDER ACUTE DISTRESS. PT IS EATING. WILL CONTINUE TO MONITOR.
--- NOTE | 2020-10-21 12:50 | NUR ---
MESSAGED TO RECOMMEND MAGNESIUM LAB VALUES DUE TO ADM DX OF LIVER FAILURE AND ALSO RECOMMENDED GIVING MORPHINE FOR PAIN. WILL AWAIT RESPONSE.
--- NOTE | 2020-10-21 13:10 | NUR ---
PLACED PT ON SEIZURE PRECAUTIONS FOR K+ LEVEL OF 3.2. PADDED SIDERAILS. PT IS NOYT UNDER APPARENT DISTRESS. SAFETY PRECAUTIONS ARE IN PLACE. WILL CONTINUE TO MONITOR.
--- NOTE | 2020-10-21 13:19 | NUR ---
DR. PACHECO ORDERED 2MG OF MORPHINE FOR PAIN Q4H FOR PAIN 7-10 TORB.
[2020-10-21] MEDS: MORPHINE SULFATE 2 MG/ML SYR IVP PRN (13:40)
--- NOTE | 2020-10-21 13:40 | NUR ---
ADMINISTERED 2MG OF MORPHINE FOR PAIN 10/10 ON ABDOMEN DESCRIBED ACHING THAT STARTED TWO MONTHS AGO AND IT IS RELIEVED WITH PAIN MEDICATION. EDUCATED PT ON MEDICATIONS MOA AND SIDE EFFECTS. PT VERBALIZED UNDERSTANDING. BP: 115/60 CA:94. PT IS RESTING COMFORTABLY. CALL LIGHT IS WITHIN REACH. WILL CONTINUE TO MONITOR.
--- NOTE | 2020-10-21 14:30 | NUR ---
RE ASSESSED PPAIN AND PAIN WENT DOWN TO 7/10 FROM 12/18. PAIN MEDICATION AND INTERVENTION WAS EFFECTIVE.
[2020-10-21 14:51] VITALS: BP 115/60
--- NOTE | 2020-10-21 15:02 | NUR ---
VISITOR PIPE CALLED REQUESTING PT'S STATUS. SHE REFERRED HERSELF A FRIEND. I EXPLAINED TO HER THAT I WAS NOT ALLOWED TO GIVE PT'S INFORMATION UNLESS PT GAVE ME PERMISSION. PT UNDERSTOOD.
[2020-10-21 16:00] VITALS: BP 116/66
--- NOTE | 2020-10-21 17:15 | NUR ---
PATIENT HAS BEEN SCREENED AND CATEGORIZED LOW NUTRITION RISK. PATIENT WILL BE SEEN WITHIN 7 DAYS OF ADMISSION. 10/27/[address]
--- NOTE | 2020-10-21 18:00 | NUR ---
ROUNDED ON PT. PT COMPLAINED OF NO PAIN. PT IS EATING. WILL CONTINUE TO MONITOR.
--- NOTE | 2020-10-21 19:30 | NUR ---
ENDORSED PT TO NIGHT NURSE FOR CONTINUITY OF CARE.PT IS STABLE.
--- NOTE | 2020-10-21 19:31 | NUR ---
RECEIVED PATIENT FROM AM NURSE FOR CONTINUITY OF CARE. PATIENT IS A/A/O X4. RESPIRATORY EVEN AND UNLABORED, ON ROOM AIR, NO SIGN OF DISTRESS NOTED. SKIN WARM, DRY, NON DIAPHORETIC. IV ON RIGHT AC 22G, INTACT AND PATENT, SALINE LOCK. IV ON LEFT AC 20G, INTACT AND PATENT, SALINE LOCK. ABDOMEN ROUND, DISTENDED, WITH REDUCIBLE UMBILICAL HERNIA NOTED WITH ERYTHEMA AND HONEY CRUSTING SKIN SCABBING. BOWEL SOUND ACTIVE TO 4 QUADRANTS. PATIENT DENIES ANY PAIN OR DISCOMFORT. DENIES ANY NAUSEA OR VOMITING. ABLE TO MAKE NEEDS KNOWN. CALL LIGHT WITHIN REACH. PRECAUTION IN PLACE. WILL CONTINUE TO MONITOR.
[2020-10-21] MEDS ORDERED: cefTRIAXone 1,000 MG VIAL ONE (19:55)
[2020-10-21 20:00] VITALS: BP 119/74
--- NOTE | 2020-10-22 | NUR ---
PATIENT IS SLEEPING, CHEST RISE AND FALL. NO SIGN OF RESPIRATORY DISTRESS NOTED. PRECAUTION IN PLACE. CALL LIGHT WITHIN REACH. WILL CONTINUE TO MONITOR.
--- NOTE | 2020-10-22 02:00 | NUR ---
ROUND CHECK. PATIENT IS SLEEPING, CHEST RISE AND FALL, NO SIGN OF DISTRESS NOTED. CALL LIGHT WITHIN REACH. WILL CONTINUE TO MONITOR.
[2020-10-22 04:00] VITALS: BP 125/71
--- NOTE | 2020-10-22 04:00 | NUR ---
ROUND CHECK. PATIENT AMBULATES TO BATHROOM INDEPENDENTLY. NO SIGN OF DISTRESS NOTED. VITAL SIGNS WITHIN NORMAL LIMIT. CALL LIGHT WITHIN REACH. WILL CONTINUE TO MONITOR.
--- NOTE | 2020-10-22 05:37 | NUR ---
PATIENT COMPLAINS OF HEADACHE, TYLENOL PRN GIVEN WITH EDUCATION, PATIENT VERBALIZED UNDERSTANDING. PATIENT TOLERATED WELL. CALL LIGHT WITHIN REACH. WILL CONTINUE TO MONITOR.
--- NOTE | 2020-10-22 07:05 | NUR ---
ENDORSED PATIENT TO AM NURSE FOR CONTINUITY OF CARE. PATIENT IS STABLE.
--- NOTE | 2020-10-22 07:30 | NUR ---
PT RECEIVED FROM GOLD CUTTER RN. PT RESTING IN BED EYES OPEN, BREATHING IS SYMMETRICAL AND UNLABORED. NO S/SX OF DISTRESS AT THIS TIME . DENIES PAIN. ALL SAFETY MEASURES ARE IN PLACE.
[2020-10-22 07:51] LABS: BASOPHILS % (AUTO) 0.5 % (0.0-2.0); HEMATOCRIT 21.3 % (36-52); HEMOGLOBIN 7.4 g/dL (12.0-18.0); LYMPHOCYTES # (AUTO) 0.7 K/uL (2.0-11.5); LYMPHOCYTES % (AUTO) 26.2 % (20.5-51.1); MEAN CORPUSCULAR HEMOGLOBIN 36 pg (27-31); MEAN CORPUSCULAR HGB CONC 35 g/dL (33-37); MEAN CORPUSCULAR VOLUME 102.6 fL (80-94); MONOCYTES # (AUTO) 0.4 K/uL (0.8-1.0); MONOCYTES % (AUTO) 15.2 % (1.7-9.3); NEUTROPHILS # (AUTO) 1.4 K/uL (1.8-7.7); NEUTROPHILS % (AUTO) 57.1 % (42.2-75.2); PLATELET COUNT (AUTO) 27 K/uL (140-450); RED BLOOD CELL COUNT(AUTO) 2.08 MIL/uL (4.20-6.10); RED CELL DISTRIBUTION WIDTH 23.2 % (11.6-13.7); WHITE BLOOD COUNT (AUTO) 2.5 K/uL (4.8-10.8)
[2020-10-22] MEDS: PANTOPRAZOLE 40 MG TABEC PO SCH (08:05)
[2020-10-22 08:07] LABS: FERRITIN 74 ng/mL (30-400)
[2020-10-22 08:07] LABS: T3 UPTAKE 36 % (24-39); T4 (THYROXINE) 7.4 ug/dL (4.5-12.0)
[2020-10-22] MEDS: HYDROcodone/APAP 7.5/325 MG 1 TAB PO PRN (08:09)
[2020-10-22 08:15] LABS: ANION GAP 12.6 (8-16); CARBON DIOXIDE 22.7 mmol/L (21-32); CREATININE 0.5 mg/dL (0.6-1.3); POTASSIUM 3.3 mmol/L (3.5-5.1)
--- NOTE | 2020-10-22 08:20 | NUR ---
MEDICATIONS GIVEN PER MD ORDER. PT EDUCATED VERBALIZED UNDERSTANDING. REFUSES SALES AND MARKETING COORDINATOR AT THIS TIME. PT STATES 6/10 PAIN AND MEDIATIONS, DISTRACTION AND ICE INEFFECTIVE PRN MEDICATION GIVEN AT THIS TIME. PATIENT REORIENTED TO ROOM. ALL SAFETY MEASURES ARE IN PLACE. CALL LIGHT WITHIN REACH
--- NOTE | 2020-10-22 09:27 | NUR ---
PT REASSESSED. PT HAS BLE SWELLING, ABDOMEN EXTENDED. PT STATES PAIN IS REDUCED. PT ADMITS TO VISION PROBLEMS , STATES LAS BM WAS THIS MORNING , DENIES URINARY PROBLEMS. NO COUGH SOB, OR CHEST PAIN .
[2020-10-22 10:04] LABS: TRANSFERRIN 160 mg/dL (177-329)
--- NOTE | 2020-10-22 10:25 | NUR ---
PT COMPLAINS OF HUNGER, PT STATES HE DID NOT GET BREAKFAST. NUTRITION CALLED AND BREAKFAST WAS PROVIDED.
--- NOTE | 2020-10-22 11:17 | NUR ---
ALCOHOL SENSATION Addendum: 10/22/20 at 1118 by Serena Shannon RN RN ALCOHOL CESSATION COMPLETE. PT STATES HE STILL DRINKS 4 BEERS QD. PT EDUCATED ON RISKS AND SIDE EFFECTS OF CONTINUING DRINKING . PT VERBALIZED UNDERSTANDING. REINFORCEMENT NEEDED
[2020-10-22] MEDS: POTASSIUM CHLORIDE 10 MEQ TABER PO PRN (11:24)
[2020-10-22 12:00] VITALS: BP 122/78
[2020-10-22] MEDS ORDERED: LORazepam 2 MG/ML VIAL IM/IVP PRN (12:10)
--- NOTE | 2020-10-22 12:14 | NUR ---
MD LEE AT BEDSIDE. DID ALCOHOL CESSATION WITH PATIENT. PT VERBALIZED UNDERSTANDING . MD ORDERED ABDOMINAL BINDER, PT PLACED ON ABDOMINAL BINDER . PT TOLERATED WELL DENIES PAIN AT THIS TIME
[2020-10-22] MEDS ORDERED: POTASSIUM CHLORIDE 20% 40 MEQ/15 ML UDC GT SCH (13:00)
[2020-10-22] MEDS: SPIRONOLACTONE 50 MG TAB PO SCH (13:00)
[2020-10-22] MEDS ORDERED: chlordiazePOXIDE 25 MG CAP PO SCH (13:00)
--- NOTE | 2020-10-22 13:14 | NUR ---
PTS UMBELICAL HERNIA RUPTURED. MD LOPEZ AND MD LEE AWARE. PER MD LEE WE PUT A COLOSTOMY BAG OVER IT
--- NOTE | 2020-10-22 13:38 | NUR ---
PT LEFT FOR PROCEDURE Addendum: 10/22/20 at 1338 by Serena Shannon RN RN WRONG PT
--- NOTE | 2020-10-22 13:42 | NUR ---
MEDICATION GIVEN PER MD SOLIS. PT EDUCATED AND VERBALIZED UNDERSTANDING. ALL SAFETY MEASURES IN PLACE
--- NOTE | 2020-10-22 13:42 | NUR ---
PTS LINEN CHANGED PT WET 4 TOWELS. PT EDUCATED TO CALL IF HE EXPERIENCES SOB, DIZZINESS , OR ANY DISTRESS.
--- NOTE | 2020-10-22 13:49 | NUR ---
PT COMPLAINS OF DIZZINESS, VITAL SIGNS ASSESSED ALL WNL. MD AWARE.
[2020-10-22] MEDS ORDERED: NACL 0.9% 500 ML IV ONE (13:50)
[2020-10-22] MEDS: chlordiazePOXIDE 25 MG CAP PO SCH ×2 (13:55→17:00)
[2020-10-22] MEDS: FUROSEMIDE 20 MG/2 ML VIAL IVP SCH (14:22)
--- NOTE | 2020-10-22 14:22 | NUR ---
PTS BP REASSESSED 122/89 . HR 116
--- NOTE | 2020-10-22 14:22 | NUR ---
MEDICATIONS GIVEN PER MD ORDER. PT EDUCATED AND VERBALIZED UNDERSTANDING . PT STATES HE FEELS LESS DIZZY BUT STILL DIZZY
--- NOTE | 2020-10-22 14:53 | NUR ---
OH AT BEDSIDE
--- NOTE | 2020-10-22 15:58 | NUR ---
PT COMPLAINS DRAINAGE FROM BAG BEING MORE RED. DRAINAGE ASSESSED MORE RED NO CLOTS.
--- NOTE | 2020-10-22 16:00 | NUR ---
1500 MLS THUS FAR FROM URINAL, 1200 FROM UMBILICAL HERNIA PLUS 8 SOAKED TOWELS
[2020-10-22] MEDS: NACL 0.9% 1,000 ML IV SCH (16:15)
[2020-10-22] MEDS: FERROUS SULFATE 325 MG TABEC PO SCH (17:00)
--- NOTE | 2020-10-22 18:00 | NUR ---
PATIENT GIVEN DINNER TOLERATED WELL. PT STATES HE DOES NOT WANT TO EAT BECAUSE HE WILL HAVE TO POOP AND FEELS UNABLE TO WALK. PT EDUCATED ON BEDPAN
[2020-10-22 18:21] LABS: BASOPHILS % (AUTO) 0.3 % (0.0-2.0); EOSINOPHILS % (AUTO) 1.4 % (0.0-4.0); HEMATOCRIT 23.9 % (36-52); HEMOGLOBIN 7.9 g/dL (12.0-18.0); LYMPHOCYTES # (AUTO) 0.9 K/uL (2.0-11.5); LYMPHOCYTES % (AUTO) 29.2 % (20.5-51.1); MEAN CORPUSCULAR HEMOGLOBIN 36 pg (27-31); MEAN CORPUSCULAR HGB CONC 33 g/dL (33-37); MEAN CORPUSCULAR VOLUME 108.8 fL (80-94); MONOCYTES # (AUTO) 0.6 K/uL (0.8-1.0); MONOCYTES % (AUTO) 19.9 % (1.7-9.3); NEUTROPHILS # (AUTO) 1.6 K/uL (1.8-7.7); NEUTROPHILS % (AUTO) 49.2 % (42.2-75.2); PLATELET COUNT (AUTO) 29 K/uL (140-450); RED CELL DISTRIBUTION WIDTH 23.5 % (11.6-13.7); WHITE BLOOD COUNT (AUTO) 3.2 K/uL (4.8-10.8)
--- NOTE | 2020-10-22 19:27 | NUR ---
PT ENDORSED TO ENGLISH INSTRUCTOR NURSE. PT INSTABLE CONDITION. VITAL SIGNS WNL
--- NOTE | 2020-10-22 19:27 | NUR ---
1800 TOTAL OUTPUT FOR UMBELICAL HERNIA RUPTURE MD KENNETH MANN, MD IZQUIEDRO AWARE.
--- NOTE | 2020-10-22 19:28 | NUR ---
RECD. RESTING IN BED, AWAKE, A/OX4. RESPIRATION EVEN AND UNLABORED. IV OF NS AT 70 ML/HR INFUSING, LEFT AC G20. COLOSTOMY BAG IN THE UMBILICAL AREA INTACT, WITH DRAINAGE WITH BLOOD. ON BILATERAL LEG SEQUENTIALS. MEDICATIONS FOR THE NIGHT DISCUSSED WITH PATIENT. VERBALIZED UNDERSTANDING. DENIES PAIN 0/10.
--- NOTE | 2020-10-22 19:29 | NUR ---
Patient's Plan of Care was discussed and reviewed with TRAVEL GUIDE: FRANSICO DOYLE.
[2020-10-22 20:00] VITALS: BP 110/61
--- NOTE | 2020-10-22 20:30 | NUR ---
CBD RESULT OF BLOOD TEST DRAWN AT Q1815 - HBG INCREASED FROM 7.4 TO 7.9, HCT - 23.9.
--- NOTE | 2020-10-22 20:39 | NUR ---
ceftrixone iv given, no a/r noted.
[2020-10-22] MEDS: LACTULOSE 20 GM/30 ML UDC PO SCH (20:43)
--- NOTE | 2020-10-22 20:43 | NUR ---
SCHEDULED MEDICATIONS FOR THE NIGHT GIVEN. TEACHING GIVEN ON THE IMPORTANCE OF NOT DRINKING ALCOHOL. VERBALIZED UNDERSTANDING.
--- NOTE | 2020-10-22 20:50 | NUR ---
CALLED DR. COOPER EXCHANGE AND INFORMED NURSE TECH REGARDING THE NEED FOR DR. COOPER TO BE INFORMED ON THE OUTPUT FROM UMBILICAL HERNIA WHICH IS STILL BLOODY AND IF HE IS PLANNING TO DO SURGERY TO THE PATIENT.
--- NOTE | 2020-10-22 21:45 | NUR ---
DR. COOPER DID NOT CALL BACK. INFORMED TRAY DRIER LAMONT, CHARGE NURSE JIE. WILL CONTINUE TO MONITOR OUTPUT.
--- NOTE | 2020-10-23 | NUR ---
SLEEPING COMFORTABLY IN BED.
[2020-10-23] MEDS: HYDROcodone/APAP 7.5/325 MG 1 TAB PO PRN (00:48)
--- NOTE | 2020-10-23 02:00 | NUR ---
ALWAYS TRYING TO TAKE OUT 02 CANNULA. REORIENTED TO HOSPITAL SETTING. Addendum: 10/23/20 at 0751 by Zulay Abbott LVN CORRECTION: THIS CHARTING IS NOT FOR THIS PATIENT.
--- NOTE | 2020-10-23 02:00 | NUR ---
NO COMPLAINT OF PAIN AT THIS TIME, ON ROOM AIR. NO SOB NOTED.
[2020-10-23 04:00] VITALS: BP 110/61
--- NOTE | 2020-10-23 04:00 | NUR ---
VS REMAIN STABLE. ABLE TO OBTAINED 1,450 ML OUTPUT FROM THE COLOSTOMY B AG, STILL REDDISH IN COLOR.
--- NOTE | 2020-10-23 06:00 | NUR ---
ABLE TO SLEEP WELL DURING THE NIGHT.
[2020-10-23] MEDS: NACL 0.9% 1,000 ML IV SCH ×2 (06:42→20:51)
--- NOTE | 2020-10-23 07:38 | NUR ---
ENDORSED TO AM SHIFT NURSE FOR CONTINUITY OF CARE.
--- NOTE | 2020-10-23 07:39 | NUR ---
REPORT RECEIVED FROM ACCOUNTING OFFICE MANAGER NURSE.
[2020-10-23 08:00] LABS: BASOPHILS % (AUTO) 0.5 % (0.0-2.0); EOSINOPHILS # (AUTO) 0.1 K/uL (0-0.4); EOSINOPHILS % (AUTO) 3.6 % (0.0-4.0); HEMATOCRIT 20.7 % (36-52); HEMOGLOBIN 7.3 g/dL (12.0-18.0); MEAN CORPUSCULAR HEMOGLOBIN 36 pg (27-31); MEAN CORPUSCULAR HGB CONC 35 g/dL (33-37); MEAN CORPUSCULAR VOLUME 103.4 fL (80-94); MONOCYTES # (AUTO) 0.4 K/uL (0.8-1.0); NEUTROPHILS # (AUTO) 1.1 K/uL (1.8-7.7); PLATELET COUNT (AUTO) 32 K/uL (140-450); RED CELL DISTRIBUTION WIDTH 22.3 % (11.6-13.7); WHITE BLOOD COUNT (AUTO) 2.6 K/uL (4.8-10.8)
[2020-10-23] MEDS ORDERED: FERROUS SULFATE 325 MG TABEC PO SCH (08:00)
[2020-10-23 08:23] LABS: ANION GAP 9.3 (8-16); CARBON DIOXIDE 23.2 mmol/L (21-32); CREATININE 0.5 mg/dL (0.6-1.3); POTASSIUM 3.5 mmol/L (3.5-5.1)
[2020-10-23 08:42] LABS: LYMPHOCYTES % (AUTO) 36.4 % (20.5-51.1); MONOCYTES % (AUTO) 15.8 % (1.7-9.3); NEUTROPHILS % (AUTO) 43.7 % (42.2-75.2)
--- NOTE | 2020-10-23 09:05 | NUR ---
MEDS GIVEN PER MD ORDER. PT TOLERATED WELL. NO S/SX OF DISTRESS . ALL SAFETY MEASURES ARE IN PLACE
[2020-10-23] MEDS: chlordiazePOXIDE 25 MG CAP PO SCH ×3 (09:06→16:10)
[2020-10-23] MEDS: FUROSEMIDE 20 MG/2 ML VIAL IVP SCH (09:06)
[2020-10-23] MEDS: SPIRONOLACTONE 50 MG TAB PO SCH (09:06)
[2020-10-23] MEDS: FERROUS SULFATE 325 MG TABEC PO SCH ×2 (09:07→16:11)
[2020-10-23] MEDS: PANTOPRAZOLE 40 MG TABEC PO SCH (09:07)
[2020-10-23] MEDS: LACTULOSE 20 GM/30 ML UDC PO SCH ×2 (09:07→21:00)
--- NOTE | 2020-10-23 10:20 | NUR ---
PT RESTING IN BED. PT ASSISTED W ADLS
--- NOTE | 2020-10-23 11:10 | NUR ---
WOUND CULTURE OBTAINED PER MD ORDER. PT TOLERATED WELL.
[2020-10-23 12:00] VITALS: BP 102/63
--- NOTE | 2020-10-23 12:10 | NUR ---
OH AT BEDSIDE. EXPLAINED PROCEDURE USING OYSTER HARVESTER PHONE , 2 CONSENTS SIGNED ONE IN VIETNAMESE AND ONE IN CZECH . PT DENIES ANY QUESTIONS OR CONCERNS. ALL SAFETY MEASURES ARE IN PLACE
--- NOTE | 2020-10-23 12:40 | NUR ---
MEDICATIONS GIVEN PER MD ORDER. PT EDUCATED VERBALIZED UNDERSTANDING . NO S/SX OF DISTRESS
--- NOTE | 2020-10-23 14:20 | NUR ---
PT RESTING IN BED, NO S/SX OF DISTRESS.
[2020-10-23] MEDS: POTASSIUM CHLORIDE 10 MEQ TABER PO PRN (16:10)
--- NOTE | 2020-10-23 17:10 | NUR ---
MEDICATIONS GIVEN PER MD ORDER. PT EDUCATED AND VERBALIZED UNDERSTANDING NO S/SX OF DISTRESS AT THIS TIME
--- NOTE | 2020-10-23 18:30 | NUR ---
PRE TRANSFUSION VITALS OBTAINED. WNL
--- NOTE | 2020-10-23 18:38 | NUR ---
DOUBLE RN VERIFICATION COMPLETE AT BEDSIDE. PT EDUCATED
--- NOTE | 2020-10-23 18:40 | NUR ---
BLOOD TRANSFUSION BEGAN . PT EDUCATED ON SIDE EFFECTS AND ASKED TO PLEASE REPORT.
[2020-10-23 19:18] LABS: BILIRUBIN,DIRECT 2.6 mg/dL (0.0-0.3); TOTAL BILIRUBIN 7.4 mg/dL (0.0-1.0)
--- NOTE | 2020-10-23 19:21 | NUR ---
BEDSIDE REPORT GIVEN TO RN. RN AWARE OF CURRENT TRANSFUSION AND NEED FOR ONE MORE.
[2020-10-23] MEDS: ACETAMINOPHEN 325 MG TAB PO SCH (20:00)
[2020-10-23] MEDS: FUROSEMIDE 20 MG TAB PO SCH (20:00)
[2020-10-23 23:35] LABS: PROTHROMBIN TIME 18.6 secs (10.8-13.4)
[2020-10-24] MEDS: MORPHINE SULFATE 2 MG/ML SYR IVP PRN (02:46)
[2020-10-24 03:14] VITALS: BP 128/70
[2020-10-24] MEDS: ACETAMINOPHEN 325 MG TAB PO SCH ×3 (04:00→20:52)
--- NOTE | 2020-10-24 04:12 | NUR ---
FIRST UNIT OF BLOOD TRANSFUSION COMPLRETED AT 2200 NO REACTION , VSS PATIENT DENIES PAIN , I WENT TO THE LAB TO GET A SECOND ONE AND THEY TOLD ME SKY WHAT THEY HAVE HAS AND I SHOULD ORDER A NOTHER ONE AND TYPE AND CROSS I CAME BACK AND ASKED HER TO TYPE AND CLOSS I MORE UNIT AND UP TO NOW THEY HAV NOT INFORMED US THAT THE BLOOD WAS READY , PT IS SLEEPING WELL .
--- NOTE | 2020-10-24 05:30 | NUR ---
AT 0526 I STARTED THE 2ND UNIT OF BLOOD TRANSFUSION PRBC , VSS , DENIES PAIN SEEMS CONFUSESED HE PULLED OUT THE SECOND IV ACCESS,
--- NOTE | 2020-10-24 06:32 | NUR ---
PT IS STILL ON SECOND UNIT OF BLOOD NO REACTION VSS .
--- NOTE | 2020-10-24 07:28 | NUR ---
PT HAS BEEN ENDORSED BY PRINTED CIRCUIT BOARDS STRIPPER ETCHER NURSE FOR CONTINUITY OF CARE, POC DISCUSSED. NEW IV HAS BEEN STARTED ON LEFT FA 20 G RUNNING BLOOD AT 110. PT VITAL SIGNS ARE STABLE WITH NO ACUTE S/S OF DISTRESS. PT HAS A COLOSTOMY BAG DRAINED WITH 200 ML, AND A HUNT IN PLACE. PT BALBIR FOR PROCEDURE AT 1300, CONSENT SIGNED AND IN THE CHART. ALL SAFETY MEASURES IN PLACE, CALL LIGHT WITHIN REACH. WILL CONTINUE TO MONITOR.
[2020-10-24 08:00] VITALS: BP 111/54
[2020-10-24] MEDS: FERROUS SULFATE 325 MG TABEC PO SCH ×2 (08:00→17:48)
[2020-10-24] MEDS: LACTULOSE 20 GM/30 ML UDC PO SCH ×2 (09:00→21:13)
[2020-10-24] MEDS: chlordiazePOXIDE 25 MG CAP PO SCH ×3 (09:00→17:49)
[2020-10-24] MEDS: SPIRONOLACTONE 50 MG TAB PO SCH (09:00)
[2020-10-24] MEDS: PANTOPRAZOLE 40 MG TABEC PO SCH (09:00)
[2020-10-24] MEDS: FUROSEMIDE 20 MG/2 ML VIAL IVP SCH (09:15)
--- NOTE | 2020-10-24 09:23 | NUR ---
BLOOD TRANSFUSION HAS BEEN COMPLETED, NO ADVERSE REACTIONS NOTED. PT VITAL SIGNS ARE 117/80, 112, 98.3, 14, AND 98%. PT BALBIR MEDICATION NON ADMINISTERED DUE TO PTS NPO STATUS. IV LASIX ADMINISTERED, PT TOLERATED ADMINISTRATION. IV FLUIDS RESTARTED AT 70 ML NS. IV IS STILL PATENT. PT HAS BEEN CHANGED AND PLACED IN A YELLOW GOWN. COLOSTOMY BAG ATTACH TO HUNT BAG INTACT AND DRAINING. BED ALARM ON, ALL SAFETY MEASURES IN PLACE. CALL LIGHT WITH REACH, WILL CONTINUE TO MONITOR
[2020-10-24 10:22] LABS: BASOPHILS # (AUTO) 0.1 K/uL (0.00-0.22); BASOPHILS % (AUTO) 1.5 % (0.0-2.0); EOSINOPHILS # (AUTO) 0.1 K/uL (0-0.4); EOSINOPHILS % (AUTO) 2.6 % (0.0-4.0); HEMATOCRIT 30.3 % (36-52); HEMOGLOBIN 10.7 g/dL (12.0-18.0); LYMPHOCYTES % (AUTO) 28.3 % (20.5-51.1); MEAN CORPUSCULAR HEMOGLOBIN 35 pg (27-31); MEAN CORPUSCULAR HGB CONC 35 g/dL (33-37); MEAN CORPUSCULAR VOLUME 98.6 fL (80-94); MONOCYTES # (AUTO) 0.5 K/uL (0.8-1.0); MONOCYTES % (AUTO) 13.3 % (1.7-9.3); NEUTROPHILS % (AUTO) 54.3 % (42.2-75.2); PLATELET COUNT (AUTO) 38 K/uL (140-450); RED BLOOD CELL COUNT(AUTO) 3.07 MIL/uL (4.20-6.10); RED CELL DISTRIBUTION WIDTH 23.3 % (11.6-13.7); WHITE BLOOD COUNT (AUTO) 3.7 K/uL (4.8-10.8)
[2020-10-24 10:30] LABS: ANION GAP 12.5 (8-16); CARBON DIOXIDE 22.6 mmol/L (21-32); CREATININE 0.7 mg/dL (0.6-1.3); POTASSIUM 3.1 mmol/L (3.5-5.1)
[2020-10-24 10:34] LABS: PROTHROMBIN TIME 18.2 secs (10.8-13.4)
--- NOTE | 2020-10-24 11:00 | NUR ---
PT HAS BEEN CLEANED AND SHEETS CHANGED DUE TO PT URINATING. ALL SAFETY MEASURES IN PLACE, CALL LIGHT WITHIN REACH. WILL CONTINUE TO MONITOR.
[2020-10-24] MEDS: NACL 0.9% 1,000 ML IV SCH (11:09)
--- NOTE | 2020-10-24 14:02 | NUR ---
SPOKE WITH OR SCHEDULING, SURGERY POSTPONED DUE TO LOW PLATLETE COUNT. WILL ASK DR. COOPER IF HE WANTS HIM TO REMAIN NPO.
--- NOTE | 2020-10-24 14:16 | NUR ---
DR. COOPER ORDERED 1 UNIT PLATELET TRANSFUSION FOR TODAY AND HAVE 1 UNIT READY FOR TOMORROW AM. PLACED ORDER. WILL FOLLOW UP WITH BLOOD BANK.
--- NOTE | 2020-10-24 14:46 | NUR ---
BLOOD BANK CALLED STATING THAT [facility] ONLY SEND PLATELETS FOR A PLATELET NUMBER BELOW 10, INFORMED BLOOD BANK OF DR COOPER WANTING THE TRANSFUSION BECAUSE HE IS RECEIVING A PROCEDURE, HE WAS SCHEDULED TODAY BUT IT HAS TO BE POSTPONED TILL TOMORROW. FAXED BLOOD BANK WHAT EXACTLY THE PROCEDURE IS. BLOOD BANK STATED SHE WILL CALL [facility] BACK AND EXPLAIN THE SITUATION AND SHE WILL CALL ME BACK.
--- NOTE | 2020-10-24 15:14 | NUR ---
PT IS RESTING IN BED WITH NO ACUTE S/S OF DISTRESS, ALL SAFETY MEASURES IN PLACE, CALL LIGHT WITHIN REACH. WILL CONTINUE TO MONITOR.
--- NOTE | 2020-10-24 16:58 | NUR ---
BLOOD BANK CALLED, STATED THAT [facility] WILL GIVE 1 UNIT OF [address] BUT IF DR. COOPER WANTS A SECOND UNIT OF PLATELETS FOR TOMORROW THEN HE NEEDS TO CALL [facility] PERSONALLY. [facility] STATED THAT THEY TYPICALLY ONLY GIVE PLATELETS IF IT IS UNDER 10, BUT BECAUSE PT IS GETTING A SURGERY THEY WILL ONLY GIVE THE HOSPITAL [address] COOPER. BLOOD BANK WILL CALL WHEN PLATELETS ARE READY.
--- NOTE | 2020-10-24 17:28 | NUR ---
BALBIR MEDICATION ADMINISTERED PER MD ORDER, ALL SAFETY MEASURES IN PLACE. CALL LIGHT WITHIN REACH . WILL CONTINUE TO MONITOR.
--- NOTE | 2020-10-24 18:37 | NUR ---
DR COOPER IS ASKING IF DR IZQUIERDO CAN CALL [facility] TO GET THE 2ND UNIT OF PLATELETS. INFORMED DR IZQUIERDO OF THE SITUATION AND SHE SAID SHE WILL CALL. WILL ENDORSE TO ANIMAL CARETAKER SUPERVISOR THE SITUATION.
--- NOTE | 2020-10-24 19:13 | NUR ---
ENDORSED TO SPOOL FIXER NURSE FOR CONTINUITY OF CARE. NO SOB OR RESPIRATORY DISTRESS NOTED. DENIES ANY PAIN OR DISCOMFORT @ THIS TIME. ALL SAFETY MEASURES IN PLACE. BED IN LOWEST POSITION. CALL LIGHT PLACED WITHIN REACH.
--- NOTE | 2020-10-24 19:14 | NUR ---
RECEIVED REPORT FROM DAY SHIFT NURSE. PT IN BED RESTING. PT AAOX3-4. PT GROGGY BUT WITH SPONTANEOUS EYE OPENING. RESPIRATIONS EVEN AND UNLABORED TO ROOM AIR. ABDOMEN IS ROUND. PT WITH RUPTURED HERNIA COVERED IN COLOSTOMY BAG. BLOODY DRAINAGE NOTED. SKIN IS WARM AND DRY. PT WITH IV ACCESS ON LEFT FOREARM G20 PATENT AND INTACT, IVF INFUSING WELL. PT DENIES ANY PAIN OR DISCOMFORT AT THIS TIME. NO REQUESTS MADE. SAFETY MEASURES IN PLACE, CALL LIGHT WITHIN REACH. WILL CONTINUE TO MONITOR.
[2020-10-24 20:00] VITALS: BP 103/59
--- NOTE | 2020-10-24 20:53 | NUR ---
VS STABLE. SCHEDULED MEDS GIVEN ORDERED. PT DENIES ANY PAIN AT THIS TIME. NO REQUESTS MADE. PT KEPT COMFORTABLE. CALL LIGHT WITHIN REACH. WILL CONTINUE TO MONITOR.
[2020-10-24] MEDS: FUROSEMIDE 20 MG TAB PO SCH ×2 (20:54)
--- NOTE | 2020-10-24 23:00 | NUR ---
PLATELET TRANSFUSION STARTED. PRE TRANSFUSION VS STABLE. 2 RN VERIFICATION DONE PRIOR. PT NOT IN DISTRESS. WILL CONTINUE TO MONITOR.
[2020-10-25] MEDS: ACETAMINOPHEN 325 MG TAB PO SCH ×2 (00:05→04:00)
[2020-10-25] MEDS: FUROSEMIDE 20 MG TAB PO SCH (00:05)
--- NOTE | 2020-10-25 00:05 | NUR ---
1 UNIT PLATELET TRANSFUSED. NO REACTION NOTED. VS STABLE. WILL CONTINUE TO MONITOR.
[2020-10-25] MEDS: NACL 0.9% 1,000 ML IV SCH ×2 (01:27→15:45)
--- NOTE | 2020-10-25 02:19 | NUR ---
ASLEEP. SYMMETRICAL CHEST RISE AND FALL NOTED. NO S/SX OF PAIN OR DISCOMFORT NOTED. SAFETY MEASURES IN PLACE. WILL CONTINUE TO MONITOR.
[2020-10-25] MEDS: POTASSIUM CHLORIDE 10 MEQ TABER PO PRN (02:28)
[2020-10-25 04:00] VITALS: BP 90/53
--- NOTE | 2020-10-25 04:19 | NUR ---
VS STABLE. PT RESTING IN BED. DENIES ANY PAIN OR DISCOMFORT AT THIS TIME. NO REQUESTS MADE. PT KEPT SAFE AND COMFORTABLE. WILL CONTINUE TO MONITOR.
--- NOTE | 2020-10-25 05:45 | NUR ---
2ND UNIT OF PLATELET INFUSION STARTED. PRE TRANSFUSION VS STABLE. 2 RN VERIFICATION DONE PRIOR. WILL CONTINUE TO MONITOR.
--- NOTE | 2020-10-25 06:55 | NUR ---
2ND UNIT OF PLATELET TRANSFUSED. PT TOLERATED WELL. VS STABLE. NO REACTIONS NOTED. PT KEPT COMFORTABLE. WILL CONTINUE TO MONITOR.
--- NOTE | 2020-10-25 07:15 | NUR ---
RECEIVED BEDSIDE REPORT FROM NIGHTSHIFT NURSE FOR CONTINUITY OF CARE. PT IS AWAKE AND ALERT. PT IS ON RA WITH UNLABORED BREATHING. PT STATES NO PAIN. PT HAS DRAINAGE TUBE IN UMBILICUS WITH DRAINAGE SEROSANGUINEOUS DRAINAGE ABOUT 15 ML IN BAG. SKIN IS DRY AND WARM. IV ON LEFT FA 20 GAUGE WITH NS AT 70 ML/HR. PT IS STABLE. PT DENIES ANY PAIN. PREOP CHECK LIST COMPLETE. WILL CONTINUE TO MONITOR.
--- NOTE | 2020-10-25 07:34 | NUR ---
REPORT GIVEN TO MORNING SHIFT NURSE FOR CONTINUITY OF CARE
[2020-10-25] MEDS: FERROUS SULFATE 325 MG TABEC PO SCH ×2 (08:00→19:02)
[2020-10-25] MEDS: FUROSEMIDE 20 MG/2 ML VIAL IVP SCH (09:00)
[2020-10-25] MEDS: PANTOPRAZOLE 40 MG TABEC PO SCH (09:00)
[2020-10-25] MEDS: chlordiazePOXIDE 25 MG CAP PO SCH ×3 (09:00→19:04)
[2020-10-25] MEDS: SPIRONOLACTONE 50 MG TAB PO SCH (09:00)
[2020-10-25] MEDS: LACTULOSE 20 GM/30 ML UDC PO SCH ×2 (09:00→22:10)
--- NOTE | 2020-10-25 09:15 | NUR ---
I HELPED PT GET UP TO RESTROOM. PT IS UNSTEADY AND STAYED WITH HIM UNTIL HE WAS FINISHED. PT IS BACK IN BED AND STABLE.
[2020-10-25 10:01] LABS: HEMOGLOBIN 9.1 g/dL (12.0-18.0); MEAN CORPUSCULAR HEMOGLOBIN 35 pg (27-31); MEAN CORPUSCULAR HGB CONC 35 g/dL (33-37); PLATELET COUNT (AUTO) 80 K/uL (140-450); RED CELL DISTRIBUTION WIDTH 23.5 % (11.6-13.7); WHITE BLOOD COUNT (AUTO) 3.9 K/uL (4.8-10.8)
[2020-10-25 10:15] LABS: ANION GAP 9.3 (8-16); CREATININE 0.6 mg/dL (0.6-1.3); POTASSIUM 3.3 mmol/L (3.5-5.1)
[2020-10-25 10:59] LABS: EOSINOPHILS % (MANUAL) 2 % (0-4); LYMPHOCYTES % (MANUAL) 18 % (20-46); MONOCYTES % (MANUAL) 6 % (5-12)
--- NOTE | 2020-10-25 11:30 | NUR ---
PT STATES THAT HE WANTS WATER BUT I REMIND HIM HES NPO BECAUSE OF SURGERY AND HE UNDERSTANDS. PT IS STABLE. WILL CONTINUE TO MONITOR.
[2020-10-25 12:00] VITALS: BP 104/67
--- NOTE | 2020-10-25 13:00 | NUR ---
PT IS WHEELED OFF TO SURGERY BY TWO OR NURSES. PT IS AWAKE AND ALERT. NO DISTRESS NOTED. PT IS STABLE. WILL WAIT FOR PT TO RETURN FROM PROCEDURE.
[2020-10-25] MEDS ORDERED: BUPIVACAINE-MPF/EPI 0.25% 30 ML VIAL INJ ONE (13:10)
[2020-10-25] MEDS ORDERED: ceFAZolin 1,000 MG VIAL ONE ×3 (13:10→13:26)
[2020-10-25] MEDS ORDERED: MAG SULF 2000 MG/WATER PREMIX 50 ML IV SCH (13:15)
[2020-10-25] MEDS ORDERED: ETOMIDATE 20 MG/10 ML VIAL IVP ONE (13:35)
[2020-10-25] MEDS ORDERED: GLYCOPYRROLATE 0.2 MG/ML VIAL ONE (13:35)
[2020-10-25] MEDS ORDERED: SEVOFLURANE 250 ML BTL INH ONE (13:35)
[2020-10-25] MEDS ORDERED: ROCURONIUM 50 MG/5 ML VIAL IV ONE (13:35)
[2020-10-25] MEDS ORDERED: ALBUMIN HUMAN 5 % 250 ML IV ONE (13:49)
[2020-10-25] MEDS ORDERED: SUGAMMADEX SODIUM 200 MG/2 ML VIAL IV ONE (14:31)
[2020-10-25] MEDS ORDERED: fentaNYL citrate 0.05 MG/ML VIAL ONE (14:46)
[2020-10-25] MEDS ORDERED: ONDANSETRON 4 MG/2 ML VIAL IVP PRN (14:50)
[2020-10-25] MEDS ORDERED: HYDROmorphone 1 MG/ML AMP IVP PRN (14:50)
--- NOTE | 2020-10-25 15:30 | NUR ---
PT IS TALKING ON PHONE. NO DISTRESS NOTED. PT IS STABLE. CALL LIGHT WITHIN REACH. WILL CONTINUE TO MONITOR.
--- NOTE | 2020-10-25 15:35 | NUR ---
PT IS BACK FROM OR. PT IS SLEEPING BUT AWOKEN BY VOICE. PT DENIES ANY PAIN. VITALS ARE BP 102/62, PULSE 84, TEMP 97.4, RESP 16, O2 SAT 98, PAIN 0. PT IS STABLE. WILL CONTINUE TO MONITOR.
--- NOTE | 2020-10-25 16:50 | NUR ---
PT IS AWAKE AND ALERT. PT IS STABLE. DENIES ANY PAIN. WILL CONTINUE TO MONITOR.
--- NOTE | 2020-10-25 17:35 | NUR ---
PT POST OP VITALS HAVE BEEN STABLE. WILL CONTINUE TO MONITOR.
--- NOTE | 2020-10-25 18:35 | NUR ---
PT IS AWAKE AND ALERT. PT IS ON RA WITH UNLABORED BREATHING. PT STATES HES OK. CALL LIGHT WITHIN REACH. WILL CONTINUE TO MONITOR.
--- NOTE | 2020-10-25 19:20 | NUR ---
GAVE REPORT TO NIGHTSHIFT NURSE FOR CONTINUITY OF CARE. PT IS EATING IN BED. PT IS STABLE
--- NOTE | 2020-10-25 19:21 | NUR ---
Patient's Plan of Care was discussed and reviewed with MENA BATEMAN
[2020-10-25 20:00] VITALS: BP 108/64
--- NOTE | 2020-10-25 22:10 | NUR ---
WATCHING TV. SCHEDULED MEDICATION GIVEN. TEACHINGS ON CARE OF INCISION GIVEN. VERBALIZED UNDERSTANDING.
[2020-10-25] MEDS: HYDROcodone/APAP 7.5/325 MG 1 TAB PO PRN (22:11)
--- NOTE | 2020-10-26 | NUR ---
SLEEPING COMFORTABLY IN BED.
--- NOTE | 2020-10-26 02:00 | NUR ---
NO COMPLAINT OF PAIN 0/10. RESPIRATION EVEN AND UNLABORED.
[2020-10-26 04:00] VITALS: BP 105/57
--- NOTE | 2020-10-26 04:00 | NUR ---
STILL SLEEPING COMFORTABLY IN BED. NO SOB NOTED.
--- NOTE | 2020-10-26 06:00 | NUR ---
CONDITION REMAIN STABLE. ABLE TO SLEEP WELL.
[2020-10-26] MEDS: NACL 0.9% 1,000 ML IV SCH (06:03)
--- NOTE | 2020-10-26 07:25 | NUR ---
ENDORSED TO AM SHIFT NURSE FOR CONTINUITY OF CARE.
[2020-10-26 07:31] LABS: BASOPHILS % (AUTO) 0.1 % (0.0-2.0); HEMATOCRIT 28.6 % (36-52); HEMOGLOBIN 9.8 g/dL (12.0-18.0); LYMPHOCYTES # (AUTO) 0.6 K/uL (2.0-11.5); LYMPHOCYTES % (AUTO) 11.9 % (20.5-51.1); MEAN CORPUSCULAR HEMOGLOBIN 35 pg (27-31); MEAN CORPUSCULAR HGB CONC 34 g/dL (33-37); MEAN CORPUSCULAR VOLUME 101.6 fL (80-94); MONOCYTES # (AUTO) 0.5 K/uL (0.8-1.0); MONOCYTES % (AUTO) 9.3 % (1.7-9.3); NEUTROPHILS # (AUTO) 4.3 K/uL (1.8-7.7); NEUTROPHILS % (AUTO) 78.7 % (42.2-75.2); PLATELET COUNT (AUTO) 95 K/uL (140-450); RED BLOOD CELL COUNT(AUTO) 2.81 MIL/uL (4.20-6.10); RED CELL DISTRIBUTION WIDTH 23.9 % (11.6-13.7); WHITE BLOOD COUNT (AUTO) 5.4 K/uL (4.8-10.8)
--- NOTE | 2020-10-26 07:34 | NUR ---
PT HAS BEEN ENDORSED BY CONTROL OFFICER NURSE FOR CONTINUITY OF CARE, POC DISCUSSED. PT IS SITTING UP IN BED SPEAKING, SHOWING NO S/S OF ACUTE DISTRESS. PT IS ON ROOM AIR WITH CHEST RISING AND FALLING EVEN AND UNLABORED. PT HAS A LEFT FOREARM 22 G RUNNING NS @ 70 ML. PT DENIES PAIN AT THIS TIME. PT HAS A DRESSING ACROSS HIS UMBILICUS, DRY AND INTACT. PT VITAL SIGNS WITHIN NORMAL LIMITS. PT HAS URINAL AT BEDSIDE AND ORAL CARE AND HYGENIC WIPES PLACED AT BEDSIDE FOR PT. ALL SAFETY MEASURES IN PLACE, CALL LIGHT WITHIN REACH. WILL CONTINUE TO MONITOR.
[2020-10-26 07:43] LABS: MAGNESIUM 1.8 mg/dL (1.8-2.4); PHOSPHORUS 3.5 mg/dL (2.5-4.9)
[2020-10-26 07:46] LABS: ANION GAP 11.3 (8-16); CARBON DIOXIDE 23.8 mmol/L (21-32); CREATININE 0.6 mg/dL (0.6-1.3); POTASSIUM 4.1 mmol/L (3.5-5.1)
[2020-10-26 08:00] VITALS: BP 110/64
--- NOTE | 2020-10-26 09:08 | NUR ---
BALBIR MEDICATION ADMINISTERED PER MD ORDER. PT TOLERATED ADMINISTRATION, ALL QUESTIONS ANSWERED. IV IS PATENT AND INTACT. ALL SAFETY MEASURES IN PLACE. CALL LIGHT WITHIN REACH. WILL CONTINUE TO MONITOR.
[2020-10-26] MEDS: FUROSEMIDE 20 MG/2 ML VIAL IVP SCH (09:14)
[2020-10-26] MEDS: LACTULOSE 20 GM/30 ML UDC PO SCH (09:14)
[2020-10-26] MEDS: SPIRONOLACTONE 50 MG TAB PO SCH (09:14)
[2020-10-26] MEDS: PANTOPRAZOLE 40 MG TABEC PO SCH (09:15)
[2020-10-26] MEDS: FERROUS SULFATE 325 MG TABEC PO SCH (09:15)
[2020-10-26] MEDS: chlordiazePOXIDE 25 MG CAP PO SCH ×2 (09:15→13:08)
--- NOTE | 2020-10-26 11:04 | NUR ---
PT IS ASKING IF HE IS GOING HOME, INFORMED HIM THAT THE DOCTOR DID NOT MENTION HIM BEING DISCHARGED. WENT AND READ THE DOCTORS NOTE AND INFORMED HIM THAT THE DOCTOR WANTS TO CONTINUE TO MONITOR HIM. PT VERBALIZED UNDERSTANDING THROUGH STRING STUDIES DIRECTOR PHONE. ALL SAFETY MEASURES IN PLACE. CALL LIGHT WITHIN REACH. WILL CONTINUE TO MONITOR.
[2020-10-26] MEDS ORDERED: PANT40EC56 PO (12:40)
--- NOTE | 2020-10-26 15:00 | NUR ---
WENT OVER PT DC EDUCATION, EDUCATED ON WOUND CARE CHANGES, PRESCRIPTION TO SITE LEAD AND WHICH PHARMACY, FOLLOW UP WITH PCP WITHIN 3-5 DAYS, AND FOLLOW UP WITH DR COOPER (PROVIDED PHONE NUMBER AND ADRESS), OBTAINED DISCHARGE PHOTO AND DID DISCHARGE DRESSING CHANGE. PT VERBALIZED UNDERSTANDING AND REPORTED THAT ALL QUESTIONS ARE ANSWERED. COLLECTED ALL OF PTS BELONGINGS AND PLACED IT AT BEDSIDE. REMOVED IV SITE AND ID BANDAGE.
--- NOTE | 2020-10-26 15:09 | NUR ---
PT HAS BEEN DISCHARGED PER MD ORDER. DISCHARGE MATERIAL IS COMPLETED.. PT WAS WHEELCHAIRED OUT AND PICKED UP BY TAXI THAT THE PT ARRANGED. PT IS STABLE.
[2020-10-26] MEDS ORDERED: CIPR500T4 PO (15:41)
[2020-10-26] MEDS ORDERED: METR500T1 PO (15:41)
--- NOTE | 2020-10-26 15:45 | NUR ---
10/26/20 RD INITIAL ASSESSMENT COMPLETED PLEASE REFER TO NUTRITION ASSESSMENT UNDER CARE ACTIVITY FOR ESTIMATED NUTRITIONAL NEEDS. 1. CONTINUE HEPATIC DIET TOLERATED 2. RECOMMEND ENSURE BID FOR ADITIONAL PROTEIN 3. RD PROVIDED NUTRITION EDUCATION FOR HEPATIC DIET, H.O PROVIDED 4. RD TO FOLLOW-UP 5-7 DAYS, LOW RISK GEOVANNA TINOCO RD
--- NOTE | 2020-10-26 16:54 | NUR ---
DISCHARGE: SKEIN INSPECTOR AND SPINE SUPERVISOR MET WITH PATIENT AT BEDSIDE TO DISCUSS AND GATHER COLLATERAL INFORMATION AND TO PROVIDE RESOURCES TO LOW COST CLINICS TO PATIENT BEFORE DISCHARGE. PATIENT IS A 45 YEAR OLD MALE (PANAMANIAN SPEAKING ONLY). PATIENT STATED THAT HE WAS FEELING BETTER AND READY TO GO BACK HOME TO WHERE HE IS RENTING A ROOM FROM FRIENDS. PATIENT REPORTED LEAVING WITH ROOMMATES AND NOT LIVING WITH FAMILY OR BEEN . PATIENT REPORTED HAVING A CANE TO ASSIST HIM WITH HIS WALKING ONLY WHEN HE NEEDS IT HIS ONLY EQUIPMENT. HE REPORTED NOT HAVING A PRIMARY MD. SKEIN INSPECTOR PROVIDED HIM WITH A LIST OF LOW COST RESOURCES TO CLINICS TO FOLLOW UP WITH HIS CARE AFTER HIS DISCHARGE.
== END 2020-10-26 14:10 | disposition home or self-care (01) | DRG 420 ==
LOC: MED 18:46 → MMU 22:56 → MTU 10-21 06:27
PROVIDERS: ADMIT Family Medicine; ATTEND Family Medicine
PROC: 0W9G3ZZ Drainage of Peritoneal Cavity, Percutaneous Approach (ICD-10-PCS; 2020-10-20)
PROC: 30233N1 Transfusion of Nonautologous Red Blood Cells into Peripheral Vein, Percutaneous Approach (ICD-10-PCS; 2020-10-23)
PROC: 30233R1 Transfusion of Nonautologous Platelets into Peripheral Vein, Percutaneous Approach (ICD-10-PCS; 2020-10-24)
PROC: 0JB80ZZ Excision of Abdomen Subcutaneous Tissue and Fascia, Open Approach (ICD-10-PCS; 2020-10-25)
PROC: 0W9G0ZZ Drainage of Peritoneal Cavity, Open Approach (ICD-10-PCS; 2020-10-25)
PROC: 0WQF0ZZ Repair Abdominal Wall, Open Approach (ICD-10-PCS; principal; 2020-10-25 12:05)
DX: K72.90 Hepatic failure, unspecified without coma (principal); E43 Unspecified severe protein-calorie malnutrition; K76.6 Portal hypertension; L03.316 Cellulitis of umbilicus; D68.9 Coagulation defect, unspecified; N17.9 Acute kidney failure, unspecified; E87.2 Acidosis; I85.10 Secondary esophageal varices without bleeding; J90 Pleural effusion, not elsewhere classified; E87.1 Hypo-osmolality and hyponatremia; J98.11 Atelectasis; D61.818 Other pancytopenia; F10.231 Alcohol dependence with withdrawal delirium; E83.51 Hypocalcemia; K42.9 Umbilical hernia without obstruction or gangrene; K70.31 Alcoholic cirrhosis of liver with ascites; Z20.822 Contact with and (suspected) exposure to COVID-19; D53.9 Nutritional anemia, unspecified; E78.5 Hyperlipidemia, unspecified; E87.6 Hypokalemia; D50.9 Iron deficiency anemia, unspecified; K80.20 Calculus of gallbladder without cholecystitis without obstruction; Z91.14 Patient's other noncompliance with medication regimen
CPT/HCPCS: 36415; 71045; 80048; 80053; 80076; 80305; 81003; 82140; 82150; 82607; 82728; 82746; 83036; 83540; 83605; 83690; 83735; 83880; 84100; 84436; 84439; 84443; 84479; 84484; 85025; 85045; 85610; 85730; 86886; 86900; 86901; 86920; 87040; 87070; 87075; 87081; 87186; 87205; 96365; 96367; 96368; 99291; J0690; J0696; J1940; J2060; J2270; J3010; J3475; J3480; J3490; J7030; J7060; J7120; P9016; P9035; P9041; Q0163

== ENCOUNTER 2020-10-29 04:37 | Inpatient (IN) | payer OTHER, SELFPAY ==
[~2020-10-29] VITALS: Ht 167.6 cm; Wt 77.1 kg
[~2020-10-29 04:37] MED LIST changes: +CIPR500T4 PO; +METR500T1 PO; +PANT40EC56 PO; -POTA10TE30 PO
[2020-10-29 04:40] VITALS: BP 113/56
--- NOTE | 2020-10-29 04:43 | NUR ---
RECEIVED IN BED 3, BIBMaximino. IS PASHTO SPEAKING. PT CALLED 911 DUE TO ABDOMINAL PAIN. PT STATES HAD HERNIA SURGERY 3-4 DAYS AGO. ABDOMEN IS VERY LARGE, ROUND AND FIRM. SKIN IS JAUNDICED, SCLERA JAUNDICED
--- NOTE | 2020-10-29 04:43 | NUR ---
PATIENT TAKEN TO BED 3 VIA GURNEY.
[2020-10-29] MEDS ORDERED: MORPHINE SULFATE 4 MG/ML SYR IVP ONE (06:15)
[2020-10-29] MEDS ORDERED: ONDANSETRON 4 MG/2 ML VIAL IVP ONE (06:15)
--- NOTE | 2020-10-29 06:33 | NUR ---
TO CT VIA [facility]
--- NOTE | 2020-10-29 06:39 | NUR ---
RETURNED FROM CT
--- NOTE | 2020-10-29 06:45 | NUR ---
ASSISTED ONTO BEDPAN. STATES PAIN IS A LITTLE LESS SINCE EARLIER MORPHINE
--- NOTE | 2020-10-29 07:50 | NUR ---
PT STATES HE HAS CONTINUED SEVERE ABDOMINAL PAIN, BO FARIAS MADE AWARE OF PT STATUS
[2020-10-29] MEDS ORDERED: HYDROmorphone PFS 2 MG/ML SYR IVP ONE (07:55)
[2020-10-29 08:39] LABS: BASOPHILS % (AUTO) 0.2 % (0.0-2.0); EOSINOPHILS % (AUTO) 0.1 % (0.0-4.0); HEMATOCRIT 26.7 % (36-52); HEMOGLOBIN 9.3 g/dL (12.0-18.0); LYMPHOCYTES # (AUTO) 0.5 K/uL (2.0-11.5); LYMPHOCYTES % (AUTO) 8.7 % (20.5-51.1); MEAN CORPUSCULAR HEMOGLOBIN 35 pg (27-31); MEAN CORPUSCULAR HGB CONC 35 g/dL (33-37); MEAN CORPUSCULAR VOLUME 101.3 fL (80-94); MONOCYTES # (AUTO) 1.2 K/uL (0.8-1.0); NEUTROPHILS # (AUTO) 4.2 K/uL (1.8-7.7); PLATELET COUNT (AUTO) 89 K/uL (140-450); RED BLOOD CELL COUNT(AUTO) 2.64 MIL/uL (4.20-6.10); RED CELL DISTRIBUTION WIDTH 22.1 % (11.6-13.7)
[2020-10-29 08:41] LABS: ALBUMIN 2.3 g/dL (3.4-5.0); CARBON DIOXIDE 23.3 mmol/L (21-32); CREATININE 0.6 mg/dL (0.6-1.3); TOTAL BILIRUBIN 7.2 mg/dL (0.0-1.0)
[2020-10-29 09:24] LABS: ANION GAP 11.8 (8-16); POTASSIUM 4.1 mmol/L (3.5-5.1)
--- NOTE | 2020-10-29 09:30 | NUR ---
PT ALERT AND AWAKE, BREATHING EVEN AND UNLABORED.
[2020-10-29 10:57] LABS: APPEARANCE,URINE HAZY (CLEAR); COLOR,URINE ORANGE (YELLOW)
[2020-10-29 10:58] LABS: BILIRUBIN,URINE 2+ (NEGATIVE); BLOOD, URINE NEGATIVE (NEGATIVE); LEUKOCYTE ESTERASE ,URINE NEGATIVE (NEGATIVE); NITRITE, URINE POSITIVE (NEGATIVE); UGLUCOSE TRACE (NEGATIVE)
[2020-10-29 11:01] LABS: CALCIUM OXALATE CRYSTALS,UR 0-10 /HPF (None Seen); WBC,URINE 0-5 /HPF (0-5)
[2020-10-29] MEDS ORDERED: MORPHINE SULFATE 2 MG/ML SYR IVP PRN (11:20)
[2020-10-29] MEDS ORDERED: ACETAMINOPHEN 325 MG TAB PO PRN (11:20)
[2020-10-29] MEDS ORDERED: DOCUSATE SODIUM 100 MG GELCAP PO PRN (11:20)
[2020-10-29] MEDS ORDERED: ZOLPIDEM 5 MG TAB PO PRN (11:20)
[2020-10-29] MEDS ORDERED: ONDANSETRON 4 MG/2 ML VIAL IVP PRN (11:20)
[2020-10-29] MEDS ORDERED: LORazepam 2 MG/ML VIAL IM/IVP PRN (11:20)
[2020-10-29] MEDS ORDERED: HYDROcodone/APAP 5/325 MG 1 TAB TAB PO PRN (11:20)
[2020-10-29] MEDS ORDERED: HYDROmorphone PFS 2 MG/ML SYR IVP PRN (11:35)
--- NOTE | 2020-10-29 12:00 | NUR ---
PT STATES HE IS FEELING PAIN MUCH MORE TOLERABLE AFTER MEDICATION OF DILAUDID
[2020-10-29] MEDS: NACL 0.9% 1,000 ML IV SCH (12:03)
--- NOTE | 2020-10-29 13:30 | NUR ---
PT RESTING WITH EYES CLOSED, BREATHING EVEN AND UNLABORED. PT EASILY AROUSABLE TO VOICE. PT STATES PAIN IS MANAGED AND FEELING OK.
[2020-10-29 13:35] LABS: PROTHROMBIN TIME 16.1 secs (10.8-13.4)
[2020-10-29 13:46] LABS: CHOL/HDL RATIO 2.8 (1-4.5); FREE T4 (FREE THYROXINE) 1.17 ng/dL (0.76-1.46); PHOSPHORUS 3.9 mg/dL (2.5-4.9); THYROID STIMULATING HORMONE 0.83 uIU/mL (0.34-3.74)
--- NOTE | 2020-10-29 14:54 | NUR ---
PER DR FERNANDEZ PT IS NPO UNTIL DR COOPER SEES PT
--- NOTE | 2020-10-29 15:30 | NUR ---
PT RESTING WITH EYES CLOSED, BREATHING EVEN AND UNLABORED. PT EASILY AROUSABLE TO VOICE. PT STATES PAIN IS MANAGED AND FEELING OK.
--- NOTE | 2020-10-29 16:00 | NUR ---
PT SIGNED CONSENT AFTER SPEAKING WITH DR COOPER AND TRANSLATION FOR LATVIAN USED
[2020-10-29 17:42] LABS: BARBITURATE, URINE NEGATIVE ng/ml (NEG <=200); BENZODIAZEPINE, URINE POSITIVE ng/mL (NEG <=200); CANNABINOID, URINE NEGATIVE ng/mL (NEG <=50); COCAINE, URINE NEGATIVE ng/mL (NEG <=300); OPIATE, URINE POSITIVE ng/mL (NEG <=2000); PHENCYCLIDINE SCREEN,URINE NEGATIVE ng/mL (NEG <=25)
--- NOTE | 2020-10-29 19:26 | NUR ---
REPORT GIVEN TO SEBASTIAN TAN, TRANSFER OF CARE AT THIS TIME
--- NOTE | 2020-10-29 19:29 | NUR ---
RECEIVED REPORT FROM WEN TAN, FOR CONTINUITY OF CARE
--- NOTE | 2020-10-29 20:00 | NUR ---
PT REQUESTED FOR PAIN MEDICATION. PT STATES, "MUCHO DOLOR"
--- NOTE | 2020-10-29 23:00 | NUR ---
PT IS COMFORTABLY SLEEPING IN BED, VITAL SIGNS STABLE. ALL NEEDS MET AT THIS TIME
--- NOTE | 2020-10-30 04:55 | NUR ---
Patient appears to be resting comfortably in bed. Vital Signs within normal limits. Respirations even and unlabored.
--- NOTE | 2020-10-30 07:23 | NUR ---
GIVEN REPORT TO WEN TAN, FOR CONTINUITY OF CARE
--- NOTE | 2020-10-30 07:58 | NUR ---
Patient will be admitted to care of Dr Martinez. Admited to Tele. Will go to room 105B. Belongings list completed. Report to Radha TAN.
--- NOTE | 2020-10-30 09:25 | NUR ---
PT TAKEN TO FLOOR AT THIS TIME
[2020-10-30 09:40] VITALS: BP 116/67
--- NOTE | 2020-10-30 09:40 | NUR ---
PT ARRIVED TO UNIT FROM ED. PT IS AA&O X 4. PT IS ON RA WITH NORMAL, UNLABORED BREATHING. PT HAS UMBILICAL INCISION FROM UMBILICAL HERNIA REPAIR 4 DAYS AGO. SURGICAL INCISION IS CLOSED WITH EVON IN PLACE AND DRY DRESSING. PT BRIONNA PAIN AT THIS TIME. PT IS CALM AND COOPERATIVE. PT IS STABLE.
[2020-10-30] MEDS ORDERED: cefTRIAXone 1,000 MG VIAL ONE (10:11)
[2020-10-30] MEDS: NACL 0.9% 1,000 ML IV SCH (10:17)
--- NOTE | 2020-10-30 10:30 | NUR ---
DRESSING ON ABD SURGICAL WOUND WAS SOILED WITH SEROSANGUINOUS FLUID. FLUID WAS SMALL IN AMOUNT. NEW DRESSING WAS PLACED AFTER WOUND WAS CLEANSED WITH NS AND PATTED DRY.
--- NOTE | 2020-10-30 11:15 | NUR ---
SECURITY ARRIVED TO TAKE PT BELONGINGS TO [facility] PER PT REQUEST.
--- NOTE | 2020-10-30 11:40 | NUR ---
PERFORMED FREQ ROUNDING. PT IS TAKING A NAP. NO DISTRESS OR PAIN NOTED. PT HAS IVF RUNNING PER MD ORDER. WILL CONTINUE TO PERFORM FREQ ROUNDING.
[2020-10-30 12:00] VITALS: BP 112/57
--- NOTE | 2020-10-30 13:40 | NUR ---
PT IS STABLE AND WATCHING TELEVISION. PT DENIES PAIN AT THIS TIME. ASSESSED INCISIONAL WOUND DRESSING, DRESSING IS DRY AND INTACT. NO SOILING NOTED. WILL CONTINUE TO PERFORM FREQ ROUNDING.
--- NOTE | 2020-10-30 15:08 | NUR ---
PT DENIES PAIN AT THIS TIME. ABD DRESSING IS DRY AND INTACT. MINIMAL DRAINAGE NOTED. BREATHING IS UNLABORED ON RA. IV IS PATENT AND INFUSING ORDERED. PT IS STABLE.
--- NOTE | 2020-10-30 15:45 | NUR ---
PERFORMED FREQ ROUNDS. PT CONDITION IS STABLE AND DENIES PAIN OR DISCOMFORT AT THIS TIME. PT HAS IVF RUNNING PER MD ORDER. IV IS PATENT, VERIFIED VIA SALINE FLUSH. WILL CONTINUE TO PERFORM FREQ MONITORING.
[2020-10-30 16:59] LABS: BASOPHILS % (AUTO) 0.4 % (0.0-2.0); EOSINOPHILS # (AUTO) 0.1 K/uL (0-0.4); EOSINOPHILS % (AUTO) 1.4 % (0.0-4.0); HEMATOCRIT 25.4 % (36-52); HEMOGLOBIN 8.7 g/dL (12.0-18.0); LYMPHOCYTES # (AUTO) 0.7 K/uL (2.0-11.5); LYMPHOCYTES % (AUTO) 11.1 % (20.5-51.1); MEAN CORPUSCULAR HEMOGLOBIN 36 pg (27-31); MEAN CORPUSCULAR HGB CONC 35 g/dL (33-37); MEAN CORPUSCULAR VOLUME 102.8 fL (80-94); MONOCYTES # (AUTO) 1.6 K/uL (0.8-1.0); MONOCYTES % (AUTO) 24.8 % (1.7-9.3); NEUTROPHILS # (AUTO) 4.1 K/uL (1.8-7.7); NEUTROPHILS % (AUTO) 62.3 % (42.2-75.2); PLATELET COUNT (AUTO) 113 K/uL (140-450); RED BLOOD CELL COUNT(AUTO) 2.47 MIL/uL (4.20-6.10); WHITE BLOOD COUNT (AUTO) 6.6 K/uL (4.8-10.8)
[2020-10-30 17:11] LABS: ANION GAP 9.3 (8-16); CARBON DIOXIDE 23.5 mmol/L (21-32); CREATININE 0.7 mg/dL (0.6-1.3); POTASSIUM 4.8 mmol/L (3.5-5.1)
[2020-10-30 17:16] LABS: PHOSPHORUS 3.3 mg/dL (2.5-4.9)
[2020-10-30 18:00] VITALS: BP 113/61
--- NOTE | 2020-10-30 18:05 | NUR ---
PERFORMED FREQ ROUNDING FOR PT. PT DENIES ANY PAIN OR DISCOMFORT. ABDOMINAL DRESSING STILL CLEAN AND INTACT. WILL CONTINUE TO PERFORM FREQ ROUNDING.
--- NOTE | 2020-10-30 18:30 | NUR ---
PT WAS PROVIDED DINNER. PT WAS GIVEN JUICE REQUESTED. PT WAS SAT UP IN BED AND NO DISTRESS WAS NOTED. IV FLUIDS ARE INFUSING. WILL MONITOR.
--- NOTE | 2020-10-30 19:10 | NUR ---
ENDORSED PT TO HAND CANDY CUTTER NURSE FOR CONTINUITY OF CARE. PT IS STABLE AT THIS TIME. PLAN OF CARE DISCUSSED.
[2020-10-30 20:00] VITALS: BP 118/72
--- NOTE | 2020-10-30 23:40 | NUR ---
RECEIVED PT SLEEPING, EASILY AROUSABLE, AAOX4, WELSH SPEAKING, DENIES ABDOMINAL PAIN BUT COMPLAINING OF HEADACHE, WILL MEDICATE PRN, ABDOMEN DISTENDED BUT SOFT, POSITIVE BOWEL SOUNDS, ABDOMINAL DRESSING DRY AND INTACT, S/P UMBILICAL HERNIA REPAIR 10/25/20, INSTRUCTED NPO AFTER MIDNIGHT, IVF INFUSING WELL, MAINTAINED ON DROPLET PRECAUTION FOR R/O COVID, ON ROOM AIR WITH 95%SAT, CALL LIGHT WITHIN REACH.
[2020-10-31] VITALS: BP 99/50
--- NOTE | 2020-10-31 02:30 | NUR ---
ROUNDS MADE, PT VOIDED PER URINAL WITH 200 DARK CARLOS URINE, TOLERABLE ABDOMINAL PAIN AT THIS TIME, IVF INFUSING WELL, MONITORED CLOSELY.
[2020-10-31 04:00] VITALS: BP 103/51
--- NOTE | 2020-10-31 06:00 | NUR ---
PT SLEEPING, EASILY AROUSABLE TO VOICE, MAINTAINED ON NPO AFTER MIDNIGHT, MONITORED CLOSELY.
[2020-10-31 06:14] LABS: BASOPHILS % (AUTO) 0.4 % (0.0-2.0); EOSINOPHILS # (AUTO) 0.1 K/uL (0-0.4); EOSINOPHILS % (AUTO) 1.7 % (0.0-4.0); HEMATOCRIT 23.1 % (36-52); HEMOGLOBIN 8.1 g/dL (12.0-18.0); LYMPHOCYTES % (AUTO) 19.4 % (20.5-51.1); MEAN CORPUSCULAR HEMOGLOBIN 36 pg (27-31); MEAN CORPUSCULAR HGB CONC 35 g/dL (33-37); MEAN CORPUSCULAR VOLUME 102.6 fL (80-94); MONOCYTES # (AUTO) 1.3 K/uL (0.8-1.0); MONOCYTES % (AUTO) 26.4 % (1.7-9.3); NEUTROPHILS # (AUTO) 2.7 K/uL (1.8-7.7); NEUTROPHILS % (AUTO) 52.1 % (42.2-75.2); PLATELET COUNT (AUTO) 105 K/uL (140-450); RED BLOOD CELL COUNT(AUTO) 2.25 MIL/uL (4.20-6.10); RED CELL DISTRIBUTION WIDTH 21.7 % (11.6-13.7); WHITE BLOOD COUNT (AUTO) 5.1 K/uL (4.8-10.8)
[2020-10-31 06:16] LABS: ANION GAP 9.7 (8-16); CARBON DIOXIDE 22.7 mmol/L (21-32); CREATININE 0.6 mg/dL (0.6-1.3); POTASSIUM 4.4 mmol/L (3.5-5.1)
[2020-10-31 06:25] LABS: MAGNESIUM 1.7 mg/dL (1.8-2.4); PHOSPHORUS 2.9 mg/dL (2.5-4.9)
--- NOTE | 2020-10-31 07:35 | NUR ---
PT AWAKE, NO SIGNS OF DISTRESS, REPORT GIVEN TO DOMINICK CRABTREE FOR CONTINUITY OF CARE.
[2020-10-31] MEDS ORDERED: MAG SULF 2000 MG/WATER PREMIX 50 ML IV PRN (07:55)
[2020-10-31] MEDS ORDERED: POTASSIUM CHLORIDE 40 MEQ, LIDOCAINE MPF 1% 25 MG in NACL 0.9% 250 ML IV PRN (07:55)
[2020-10-31] MEDS ORDERED: SODIUM PHOS / POTASSIUM PHOS 1 PKT PDR PO PRN (07:55)
[2020-10-31 08:00] VITALS: BP 106/60
--- NOTE | 2020-10-31 08:40 | NUR ---
PATIENT HAS BEEN SCREENED AND CATEGORIZED LOW NUTRITION RISK. PATIENT WILL BE SEEN WITHIN 7 DAYS OF ADMISSION. 11/04/20 [facility]NS CONSULT FOR WOUNDS NOT APPROPRIATE FOR CELLULITIS GEOVANNA TINOCO RD
[2020-10-31] MEDS ORDERED: FUROSEMIDE 40 MG/4 ML VIAL IVP SCH (09:00)
[2020-10-31] MEDS ORDERED: PANTOPRAZOLE 40 MG INJ VIAL IVP SCH (09:05)
[2020-10-31] MEDS ORDERED: SPIRONOLACTONE 25 MG TAB PO SCH (09:08)
--- NOTE | 2020-10-31 10:38 | NUR ---
WOUND CARE EVALUATION NOTE: MID ABDOMINAL SURGICAL WOUND [address] AND SECURED, NO S/S WOUND DEHISCENTS, SMALL AMOUNT SEROUS DRAINAGE SEEPING OUT FROM WOUND SITE, [place] WOUND SKIN INTACT, ABDOMINAL WALL DISTENTION , NO C/O PAIN. POC DISCUSSED WITH DR. MONTOYA. RECOMMENDATION: -CLEANSE MID ABDOMINAL SURGICAL WOUND WITH NS, PAT DRY, APPLY COMPOSITE DRESSING QD AND PRN IF SOILING -PLEASE FOLLOW UP WITH SURGEON 7-10 DAYS AFTER DISCHARGE
[2020-10-31] MEDS ORDERED: FERR-149 PO (10:50)
[2020-10-31] MEDS ORDERED: SPIR25TA PO (10:50)
[2020-10-31] MEDS ORDERED: FURO-570 PO (10:50)
[2020-10-31] MEDS ORDERED: KETOROLAC 15 MG/ML VIAL IVP SCH (11:00)
[2020-10-31 12:00] VITALS: BP 102/65
[2020-10-31] MEDS ORDERED: GAUZE TP SCH (13:00)
[2020-10-31] MEDS: NACL 0.9% 1,000 ML IV SCH (13:29)
[2020-10-31 13:30] VITALS: BP 102/65
--- NOTE | 2020-10-31 16:43 | NUR ---
Patient discharged home, given educations on medications, follow up appointments and all questions regarding discharge answered. Taken off the unit in wheeled chair into private car.
== END 2020-10-31 14:00 | disposition home or self-care (01) | DRG 920 ==
LOC: MED 04:37 → MTU 09:25
PROVIDERS: ADMIT Family Medicine; ATTEND Family Medicine
DX: L76.32 Postprocedural hematoma of skin and subcutaneous tissue following other procedure (principal); K76.6 Portal hypertension; E87.1 Hypo-osmolality and hyponatremia; R18.8 Other ascites; K74.60 Unspecified cirrhosis of liver; Z79.899 Other long term (current) drug therapy; Z20.822 Contact with and (suspected) exposure to COVID-19; K80.20 Calculus of gallbladder without cholecystitis without obstruction; E83.59 Other disorders of calcium metabolism; N29 Other disorders of kidney and ureter in diseases classified elsewhere; N62 Hypertrophy of breast; M47.816 Spondylosis without myelopathy or radiculopathy, lumbar region; R74.01 Elevation of levels of liver transaminase levels; E78.5 Hyperlipidemia, unspecified; Y83.8 Other surgical procedures as the cause of abnormal reaction of the patient, or of later complication, without mention of misadventure at the time of the procedure; R16.1 Splenomegaly, not elsewhere classified
CPT/HCPCS: 36415; 71045; 76705; 80048; 80053; 80305; 81001; 82140; 82150; 83036; 83690; 83735; 83880; 84100; 84439; 84443; 84484; 85025; 85610; 85730; 87081; 87086; 96374; 96375; 96376; 99285; C9113; G0482; J0696; J1170; J1885; J1940; J2270; J2405; J7060; U0003

== ENCOUNTER 2020-11-08 14:26 | Emergency (ER) | payer OTHER, SELFPAY ==
[~2020-11-08] VITALS: Ht 170.2 cm; Wt 75.3 kg
[~2020-11-08 14:26] MED LIST changes: -CIPR500T4 PO; +FERR-149 PO; -FERR325E14 PO; +FURO-570 PO; -FURO-572 PO; -LACT-103 PO; -METR500T1 PO; -PANT40EC56 PO; +SPIR25TA PO; -SPIR50TA PO
[2020-11-08 14:44] VITALS: BP 125/69
--- NOTE | 2020-11-08 14:46 | NUR ---
PT AMB TO BED 12
--- NOTE | 2020-11-08 15:15 | NUR ---
45 Y/O MALE WITH C/O ABDOMINAL DISTENTION & ABDOMINAL PAIN. S/P LOWER ABDOMINAL SURGICAL REPAIR. INCISION CLOSED WITH EVON AND COVERED WITH A DRESSING. DRESSING IS MIN SATURATED WITH SEROSANGEINOUS DRAINAGE. SITE APPEARS REDDENED AND WARM TO TOUCH. ABD IS DISTENDED D/T HX OF LIVER CIRRHOSIS. EYES ARE SLIGHTLY YELLOW IN COLOR. PER PT, HE GETS IT DRAINED QWEEK. AOX4, ABLE TO MAKE ALL NEEDS KNOWN, VSS PMHX: HTN, LIVER CIRRHOSIS HOME MEDS: TAKES APPROX 3, UNAWARE OF WHAT THEY ARE DENIES MEDICATION ALLERGY
--- NOTE | 2020-11-08 15:52 | NUR ---
AT BEDSIDE ASSESSING PT. MADE AWARE OF SURGICAL INCISION TO ABDOMEN
[2020-11-08 16:31] VITALS: BP 122/60
--- NOTE | 2020-11-08 16:32 | NUR ---
Patient discharged with v/s stable. Written and verbal after care instructions given and explained. Patient alert, oriented and verbalized understanding of instructions. Ambulatory with steady gait. All questions addressed prior to discharge. ID band removed. Patient advised to follow up with PMD. Rx of FERROUS SULFATE, LASIX, ALDACTONE given. Patient educated on indication of medication including possible reaction and side effects. Opportunity to ask questions provided and answered.
== END 2020-11-08 16:32 | disposition home or self-care (01) ==
LOC: MED 14:26
DX: R18.8 Other ascites (principal); I10 Essential (primary) hypertension; Z79.899 Other long term (current) drug therapy; Z98.890 Other specified postprocedural states
CPT/HCPCS: 99283

== ENCOUNTER 2020-11-10 15:22 | Inpatient (IN) | payer OTHER, SELFPAY ==
[~2020-11-10] VITALS: Ht 182.9 cm; Wt 70.3 kg
[2020-11-10 15:38] VITALS: BP 117/62
--- NOTE | 2020-11-10 15:49 | NUR ---
Ambulated to bed 4
--- NOTE | 2020-11-10 15:50 | NUR ---
45/M presents to ED with c/o abdominal distention. Patient states he had hernia repair in his lower abdomen two weeks ago stating abdomen has been getting increasingly more distended since. Patient denies pain or discharge at site of surgery, states only redness and itchiness. Patient denies fevers, chills, chest pain or sob. Site appears red and tender, lauren in tact, no drainage or bleeding noted.
[2020-11-10] MEDS ORDERED: VANCOMYCIN 1,000 MG in DEXTROSE 5% 250 ML IV ONE (16:10)
[2020-11-10] MEDS ORDERED: PIPERACILLIN/TAZOBACTAM 4.5 GM in DEXTROSE 5% 100 ML IV ONE (16:10)
--- NOTE | 2020-11-10 16:10 | NUR ---
IV established to left , labs drawn and handed to entry level lab technician.
[2020-11-10] MEDS ORDERED: PIPERACILLIN/TAZOBACTAM 4.5 GM VIAL IV ONE (16:14)
[2020-11-10 16:19] LABS: BASOPHILS % (AUTO) 0.5 % (0.0-2.0); EOSINOPHILS # (AUTO) 0.1 K/uL (0-0.4); EOSINOPHILS % (AUTO) 1.5 % (0.0-4.0); HEMATOCRIT 26.5 % (36-52); HEMOGLOBIN 9.3 g/dL (12.0-18.0); LYMPHOCYTES # (AUTO) 1.1 K/uL (2.0-11.5); LYMPHOCYTES % (AUTO) 16.7 % (20.5-51.1); MEAN CORPUSCULAR HEMOGLOBIN 37 pg (27-31); MEAN CORPUSCULAR HGB CONC 35 g/dL (33-37); MEAN CORPUSCULAR VOLUME 104.7 fL (80-94); MONOCYTES # (AUTO) 0.9 K/uL (0.8-1.0); MONOCYTES % (AUTO) 14.1 % (1.7-9.3); NEUTROPHILS # (AUTO) 4.4 K/uL (1.8-7.7); NEUTROPHILS % (AUTO) 67.2 % (42.2-75.2); PLATELET COUNT (AUTO) 132 K/uL (140-450); RED BLOOD CELL COUNT(AUTO) 2.53 MIL/uL (4.20-6.10); RED CELL DISTRIBUTION WIDTH 20.9 % (11.6-13.7); WHITE BLOOD COUNT (AUTO) 6.5 K/uL (4.8-10.8)
[2020-11-10 16:40] LABS: CARBON DIOXIDE 26.3 mmol/L (21-32); CREATININE 0.8 mg/dL (0.6-1.3); TOTAL BILIRUBIN 6.2 mg/dL (0.0-1.0)
[2020-11-10] MEDS ORDERED: VANCOMYCIN 1,000 MG VIAL ONE (16:49)
[2020-11-10 16:52] LABS: ANION GAP 7.7 (8-16)
--- NOTE | 2020-11-10 17:06 | NUR ---
Marifer swab collected and walked to lab.
--- NOTE | 2020-11-10 17:10 | NUR ---
Patient taken for CT scan via [facility] at this time.
[2020-11-10] MEDS ORDERED: SODIUM PHOS / POTASSIUM PHOS 1 PKT PDR PO PRN (18:15)
[2020-11-10] MEDS ORDERED: ACETAMINOPHEN 325 MG TAB PO PRN (18:15)
[2020-11-10] MEDS ORDERED: ONDANSETRON 4 MG/2 ML VIAL IM/IVP PRN (18:15)
[2020-11-10] MEDS ORDERED: MORPHINE SULFATE 2 MG/ML SYR IVP PRN (18:15)
[2020-11-10] MEDS: PANTOPRAZOLE 40 MG INJ VIAL IVP SCH (18:27)
[2020-11-10] MEDS: HYDROcodone/APAP 5/325 MG 1 TAB TAB PO PRN (18:35)
--- NOTE | 2020-11-10 18:35 | NUR ---
Patient c/o 6/10 lower abdominal pain, medicated per PRN protocol.
[2020-11-10 19:00] LABS: MAGNESIUM 1.7 mg/dL (1.8-2.4); PHOSPHORUS 3.6 mg/dL (2.5-4.9)
[2020-11-10] MEDS ORDERED: METR500S14 PO (19:03)
[2020-11-10] MEDS ORDERED: PANT40EC PO (19:03)
[2020-11-10] MEDS ORDERED: CIPR500T4 PO (19:03)
[2020-11-10] MEDS ORDERED: CEPH250C16 PO (19:03)
--- NOTE | 2020-11-10 19:20 | NUR ---
Pt report given to Becky. Transfer of care at this time.
--- NOTE | 2020-11-10 19:22 | NUR ---
RECEIVED REPORT FROM ELIZABETH TAN, FOR CONTINUITY OF CARE.
--- NOTE | 2020-11-11 04:05 | NUR ---
RECEIVED PHONE REPORT FROM ER NURSE, WAITING PATIENT TRANSFER TO UNIT.
[2020-11-11] MEDS: MAGNESIUM OXIDE 400 MG TAB PO PRN (04:14)
[2020-11-11] MEDS: POTASSIUM CHLORIDE 10 MEQ TABER PO PRN (04:14)
--- NOTE | 2020-11-11 04:18 | NUR ---
report given to Hunter TAN from [facility] unit. pt currently a/o x 4, gcs 15. able to move all extremities freely. IV sites patent.
[2020-11-11 04:41] VITALS: BP 103/53
--- NOTE | 2020-11-11 04:41 | NUR ---
RECEIVED PATIENT FROM ER. CC SURGERY SITE INFECTED AND SWOLLEN X3 DAYS. DC CELLULITIS S/P UMBILICAL HERNIA. PATIENT IS A/A/O X4, CITIZEN OF [place] SPEAKING. LPN CMA @[id number]. RESPIRATORY EVEN AND UNLABORED, ON ROOM AIR, NO SIGN OF DISTRESS NOTED. LUNG SOUND CLEAR TO AUSCULTATE. ABDOMEN ROUND, DISTENDED, BOWEL SOUND ACTIVE TO 4 QUADRANTS. SKIN WARM, DRY, NON DIAPHORETIC, JAUNDICED, 10 EVON INTACT AT LOWER ABDOMEN WITH ERYTHEMA, PICTURE WAS TAKEN. +2 PITTING EDEMA BILATERAL LOWER EXTREMITIES. IV ON LEFT AC 20G, INTACT AND PATENT, SALINE LOCK. PATIENT DENIES ANY PAIN OR DISCOMFORT. ABLE TO MAKE NEEDS KNOWN. MRSA COLLECTED. ORIENT UNIT AND ROOM. PLAN OF CARE DISCUSSED, EDUCATED PATIENT NPO ORDER. PATIENT VERBALIZED UNDERSTANDING. CALL LIGHT WITHIN REACH. WILL CONTINUE TO MONITOR.
[2020-11-11] MEDS ORDERED: PIPERACILLIN/TAZOBACTAM 3.375 GM VIAL IV ONE (05:25)
[2020-11-11] MEDS: PIPERACILLIN/TAZOBACTAM 3.375 GM in DEXTROSE 5% 50 ML IV SCH ×5 (06:19→18:25)
--- NOTE | 2020-11-11 06:19 | NUR ---
SCHEDULE MEDICATION GIVEN WITH EDUCATION. PATIENT TOLERATED WELL. NO SIGN OF DISTRESS NOTED. CALL LIGHT WITHIN REACH. WILL CONTINUE TO MONITOR.
[2020-11-11 06:27] LABS: BASOPHILS % (AUTO) 0.8 % (0.0-2.0); EOSINOPHILS # (AUTO) 0.2 K/uL (0-0.4); EOSINOPHILS % (AUTO) 3.2 % (0.0-4.0); HEMATOCRIT 25.6 % (36-52); LYMPHOCYTES # (AUTO) 1.4 K/uL (2.0-11.5); LYMPHOCYTES % (AUTO) 29.2 % (20.5-51.1); MEAN CORPUSCULAR HEMOGLOBIN 37 pg (27-31); MEAN CORPUSCULAR HGB CONC 35 g/dL (33-37); MEAN CORPUSCULAR VOLUME 105.1 fL (80-94); MONOCYTES # (AUTO) 0.6 K/uL (0.8-1.0); MONOCYTES % (AUTO) 13.4 % (1.7-9.3); NEUTROPHILS # (AUTO) 2.6 K/uL (1.8-7.7); NEUTROPHILS % (AUTO) 53.4 % (42.2-75.2); PLATELET COUNT (AUTO) 116 K/uL (140-450); RED BLOOD CELL COUNT(AUTO) 2.43 MIL/uL (4.20-6.10); RED CELL DISTRIBUTION WIDTH 20.1 % (11.6-13.7); WHITE BLOOD COUNT (AUTO) 4.8 K/uL (4.8-10.8)
[2020-11-11 07:00] LABS: ANION GAP 6.6 (8-16); CARBON DIOXIDE 27.2 mmol/L (21-32); CREATININE 0.6 mg/dL (0.6-1.3)
--- NOTE | 2020-11-11 07:30 | NUR ---
ENDORSED PATIENT TO AM NURSE FOR CONTINUITY OF CARE. PATIENT IS STABLE.
--- NOTE | 2020-11-11 07:32 | NUR ---
RECEIVED PATIENT AND REPORT FROM PRINT SHOP HELPER RN FOR CONTINUITY OF CARE. PATIENT IS RESTING. NO S/S OF DISTRESS. ALL SAFETY PRECAUTIONS IN PLACE.
--- NOTE | 2020-11-11 07:43 | NUR ---
RECEIVED CRITICAL VALUE FROM LAB OF POTASSIUM 2.8 AND CALCIUM 7.7. IS AWARE.
[2020-11-11 07:44] LABS: POTASSIUM 2.8 mmol/L (3.5-5.1)
[2020-11-11 08:00] VITALS: BP 105/55
[2020-11-11] MEDS: SPIRONOLACTONE 50 MG TAB PO SCH (08:20)
[2020-11-11] MEDS: FERROUS SULFATE 325 MG TABEC PO SCH ×2 (08:21→20:16)
--- NOTE | 2020-11-11 08:50 | NUR ---
PATIENT HAS BEEN SCREENED AND CATEGORIZED HIGH NUTRITION RISK. PATIENT WILL BE SEEN WITHIN 1-2 DAYS OF ADMISSION. 11/11/20-11/12/[address]
[2020-11-11] MEDS: PANTOPRAZOLE 40 MG INJ VIAL IVP SCH (09:00)
[2020-11-11] MEDS ORDERED: POTASSIUM CHLORIDE 40 MEQ, LIDOCAINE MPF 1% 25 MG in NACL 0.9% 250 ML IV SCH (10:00)
[2020-11-11] MEDS: FUROSEMIDE 40 MG/4 ML VIAL IVP SCH (10:42)
--- NOTE | 2020-11-11 11:50 | NUR ---
DR. MONTOYA AT BEDSIDE DISCUSSING PLAN OF CARE WITH PATIENT.
--- NOTE | 2020-11-11 12:59 | NUR ---
ADMINISTERED SCHEDULED MEDICATIONS. PATIENT VERBALIZED UNDERSTANDING. ALL SAFETY PRECAUTIONS IN PLACE.
[2020-11-11 16:00] VITALS: BP 97/53
--- NOTE | 2020-11-11 16:14 | NUR ---
11/11/20 RD INITIAL ASSESSMENT COMPLETED PLEASE REFER TO NUTRITION ASSESSMENT UNDER CARE ACTIVITY FOR ESTIMATED NUTRITIONAL NEEDS. 1. CONTINUE NPO UNTIL MEDICALLY APPROPRIATE 2. RECOMMEND HEPATIC DIET POST PROCEDURE 3. IF PT INTAKE LESS THAN 75% RECOMMEND ENSURE ONCE A DAY FOR ADDITIONAL KCAL AND PROTEIN 4. RECOMMEND HERNAN BID 5. RD TO FOLLOW-UP 3-5 DAYS, MODERATE RISK GEOVANNA TINOCO, RD
[2020-11-11 18:23] LABS: ANION GAP 7.2 (8-16); CARBON DIOXIDE 26.4 mmol/L (21-32); CREATININE 0.6 mg/dL (0.6-1.3); POTASSIUM 3.6 mmol/L (3.5-5.1)
--- NOTE | 2020-11-11 18:30 | NUR ---
DR. COOPER AT BEDSIDE WITH PATIENT FOR STAPLE AND SUTURE REMOVAL. PATIENT TOLERATING WELL. WILL CONTINUE TO MONITOR.
[2020-11-11] MEDS: HYDROcodone/APAP 5/325 MG 1 TAB TAB PO PRN (18:50)
--- NOTE | 2020-11-11 18:53 | NUR ---
PATIENT COMPLAINS OF 5/10 PAIN AT ABDOMINAL SITE AFTER BEDSIDE PROCEDURE. ADMINISTERED PRN PAIN MEDICATION.
--- NOTE | 2020-11-11 19:29 | NUR ---
ENDORSED PATIENT TO BALLET TEACHER RN FOR CONTINUITY OF CARE. PATIENT IS STABLE.
--- NOTE | 2020-11-11 19:30 | NUR ---
RECEIVED REPORT FROM RN DAYSHIFT NURSE AT BEDSIDE FOR CONTINUITY OF CARE, PT IN STABLE CONDITION.
[2020-11-11 20:00] VITALS: BP 109/58
--- NOTE | 2020-11-11 20:00 | NUR ---
PT IS AOX4 [place] SPEAKING. HE HAS A LEFT AC 20G INTACT AND RUNNING NORMAL SALINE AT 10MLS/HR TO KVO. PT ABDOMEN IS FIRM AND DISTENDED. PT HAD SUTURES/EVON REMOVED ON WOUND OF LOWER ABDOMEN. SURGEON MD COOPER, PACKED WOUND. WOUND DRESSING WAS SATURATED WITH SEROSANGUINEOUS DRAINAGE AND DRY DRESSING REINFORCED. V/S FOLLOWS: T 98 P 93 R 20 B/P 109/58 02 99% ON ROOM AIR. ALL UNIVERSAL FALLS PRECAUTIONS IN PLACE.
[2020-11-11] MEDS: DOCUSATE SODIUM 100 MG GELCAP PO PRN (20:16)
--- NOTE | 2020-11-11 21:20 | NUR ---
PT RECEIVED DUE FERROUS SULFATE TABLET FOR LOW HEMOGLOBIN. WELL REQUESTED COLACE CAPSUL FOR C/O OF CONSTIPATION. TEACHING REGARDING MEDICATION AND IT PURPOSE PROVIDED AT BEDSIDE, PT VERBALIZED UNDERSTANDING. PT ALSO GIVEN 2 PRUNE JUICES TO ASSIST WITH A BOWEL MOVEMENT. ALL ORDERED PRECAUTIONS IN PLACE. ALL ORDERED PRECAUTIONS IN PLACE.
--- NOTE | 2020-11-11 23:00 | NUR ---
ROUNDS DONE, PT RESTING IN BED. HE WAS INFORMED THAT HE WILL BE NPO BECAUSE OF ORDERED HYDA SCAN IN THE MORNING.
--- NOTE | 2020-11-12 00:15 | NUR ---
AGUSTIN HUNG AND RUNNING ORDERED. TEACHING REINFORCED REGARDING NPO STATUS FOR HIDA SCAN TOMORROW. PT VERBALIZED UNDERSTANDING WELL PURPOSE OF IV ABT. DRESSING OF ABDOMEN INTACT AND DRY. ALL ORDERED PRECAUTIONS IN PLACE.
[2020-11-12] MEDS: PIPERACILLIN/TAZOBACTAM 3.375 GM in DEXTROSE 5% 50 ML IV SCH ×4 (00:22→18:46)
[2020-11-12 04:00] VITALS: BP 111/68
--- NOTE | 2020-11-12 05:30 | NUR ---
PT IN BED AWAKE, LABS AT BEDSIDE TO DRAW LABS. IV SITE ON RIGHT AC INTACT AND RUNNING NORMAL; SALINE TKO. ZOSYN HUNG AND RUNNING ORDERED. DRESSING TO ABDOMEN INTACT V/S FOLLOWS: T 97.4 P 82 R 20 B/P 111/68 02 97% ON ROOM AIR. PT HAS NO C/O VOICED AT THIS TIME.
[2020-11-12 07:03] LABS: ANION GAP 7.8 (8-16); CARBON DIOXIDE 27.1 mmol/L (21-32); CREATININE 0.7 mg/dL (0.6-1.3); POTASSIUM 3.9 mmol/L (3.5-5.1)
--- NOTE | 2020-11-12 07:05 | NUR ---
RECEIVED REPORT FROM CURATOR NURSE FOR CONTINUITY OF PATIENT CARE. PATIENT SLEEPING. NO ACUTE DISTRESS NOTED. PATIENT HAS R AC 20G WITH NS AT TKO. PATIENT ON ROOM AIR. ALL SAFETY MEASURES IN PLACE. CALL LIGHT WITHIN REACH WILL CONTINUE TO MONITOR.
[2020-11-12 07:23] LABS: BASOPHILS % (AUTO) 0.8 % (0.0-2.0); EOSINOPHILS # (AUTO) 0.1 K/uL (0-0.4); EOSINOPHILS % (AUTO) 1.8 % (0.0-4.0); HEMATOCRIT 26.9 % (36-52); HEMOGLOBIN 9.5 g/dL (12.0-18.0); LYMPHOCYTES # (AUTO) 1.1 K/uL (2.0-11.5); LYMPHOCYTES % (AUTO) 21.5 % (20.5-51.1); MEAN CORPUSCULAR HEMOGLOBIN 37 pg (27-31); MEAN CORPUSCULAR HGB CONC 35 g/dL (33-37); MONOCYTES # (AUTO) 0.7 K/uL (0.8-1.0); MONOCYTES % (AUTO) 14.1 % (1.7-9.3); NEUTROPHILS % (AUTO) 61.8 % (42.2-75.2); PLATELET COUNT (AUTO) 113 K/uL (140-450); RED BLOOD CELL COUNT(AUTO) 2.58 MIL/uL (4.20-6.10); RED CELL DISTRIBUTION WIDTH 20.1 % (11.6-13.7); WHITE BLOOD COUNT (AUTO) 4.9 K/uL (4.8-10.8)
[2020-11-12] MEDS: FERROUS SULFATE 325 MG TABEC PO SCH ×2 (09:00→21:48)
[2020-11-12] MEDS: SPIRONOLACTONE 50 MG TAB PO SCH (09:00)
[2020-11-12] MEDS: FUROSEMIDE 40 MG/4 ML VIAL IVP SCH (09:28)
--- NOTE | 2020-11-12 09:28 | NUR ---
PATIENT AWAKE AND ALERT. NO ACUTE DISTRESS NOTED. SCHEDULED MEDIATION GIVEN. SAFETY MEASURES IN PLACE. CALL LIGHT WITHIN REACH. WILL CONTINUE TO MONITOR.
[2020-11-12] MEDS: PANTOPRAZOLE 40 MG INJ VIAL IVP SCH (09:30)
--- NOTE | 2020-11-12 11:15 | NUR ---
PATIENT AWAKE AND ALERT. NO ACUTE DISTRESS NOTED. HIDA SCAN IN PROCESS. SAFETY MEASURES IN PLACE. CALL LIGHT WITHIN REACH. WILL CONTINUE TO MONITOR.
--- NOTE | 2020-11-12 12:45 | NUR ---
WOUND CARE EVALUATION NOTES: REASON FOR EVALUATION: ABD CELLULITIS S/P RECENT UMBILICAL HERNIA REPAIR WOUND ASSESSMENT COMPLETED ON THIS 45 Y/O MALE ADMITTED TO [facility] FOR CELLULITIS S/P RECENT UMBILICAL HERNIA REPAIR. PATIENT IS FROM HOME. PAST MEDICAL HISTORY INCLUDES CHOLELITHIASIS, ASCITES, ANASARCA, LIVER CIRRHOSIS, SPLENOMEGALY, HLD. ALL ABOVE INFORMATION WAS OBTAINED FROM THE ADMISSION H&P. LABS ARE WBC 4.9, H/H 9.5/26.9, GLUCOSE 128, ALBUMIN 2.0. PATIENT IS AAOX4. SKIN IS WARM TO TOUCH, COLOR APPROPRIATE TO ETHNICITY. HAS ASCITES. ORAL MUCOSAL MEMBRANES MOIST. INDEPENDENT WITH TURNING AND AMBULATES WITH STEADY GAIT. PLAN OF WOUND CARE DISCUSSED WITH PATIENT AND PRIMARY RN. PATIENT VERBALIZED UNDERSTANDING. PATIENT ADMITTED WITH ABDOMINAL CELLULITIS S/P RECENT UMBILICAL HERNIA REPAIR COMORBIDITIES RELATED TO FURTHER SKIN BREAKDOWN SUCH LOW ALBUMIN LEVEL. INTEGUMENTARY: - RECENT UMBELICAL HERNIA REPAIR S/P EVON REMOVAL BY DR. COOPER ON 11/11/20. WOUND BED MOIST, RED, NO ODOR, MODERATE SEROSANGUINOUS DRAINAGE, AND INNER SURGICAL SUTURES INTACT, NO DEHISCENCE. GRANULATING WOUND BED. PERIWOUND INTACT, PINK, DRY. RECOMMENDATIONS: - RECENT UMBELICAL HERNIA REPAIR S/P EVON REMOVAL - CLEANSE WOUND WITH NS, PAT DRY, PACK WITH DRY GAUZE, COVER WITH ABD PAD, AND SECURE WITH PAPER TAPE. - ASSESS AND MONITOR SKIN CONDITION QSHIFT.
[2020-11-12] MEDS: GAUZE TP SCH (13:49)
[2020-11-12] MEDS: CHLORHEXADINE GLUC 2% CLOTH TP SCH (13:49)
[2020-11-12] MEDS: MUPIROCIN CA NASAL 2% 1GM TUBE NS SCH (13:49)
--- NOTE | 2020-11-12 14:10 | NUR ---
PATIENT AWAKE AND ALERT. NO ACUTE DISTRESS NOTED. AT BEDSIDE. ALL SAFETY MEASURES IN PLACE. CALL LIGHT WITHIN REACH. WILL CONTINUE TO MONITOR.
--- NOTE | 2020-11-12 15:12 | NUR ---
PATIENT AWAKE AND ALERT. NO ACUTE DISTRESS NOTED. AT BEDSIDE. SAFETY MEASURES IN PLACE. CALL LIGHT WITHIN REACH. WILL CONTINUE TO MONITOR.
[2020-11-12 16:00] VITALS: BP 105/49
--- NOTE | 2020-11-12 17:06 | NUR ---
PATIENT AWAKE. NO ACUTE DISTRESS NOTED. PATIENT ON ROOM AIR. BROTHER AT BEDSIDE. ALL SAFETY MEASURES IN PLACE. CALL LIGHT WITHIN REACH. WILL CONTINUE TO MONITOR .
--- NOTE | 2020-11-12 19:05 | NUR ---
ENDORSED TO SIGNS CLEANER FOR CONTINUITY OF PATIENT CARE. PATIENT STABLE. AT BEDSIDE. ALL SAFETY MEASURES IN PLACE.
[2020-11-12 20:37] LABS: PROTHROMBIN TIME 14.2 secs (10.8-13.4)
[2020-11-12] MEDS: HYDROcodone/APAP 5/325 MG 1 TAB TAB PO PRN (21:46)
--- NOTE | 2020-11-12 22:22 | NUR ---
I RECEIVED PT IN BED FROM OUT GOING NURSE, FAMILY IS IN THE ROOM , PT IS ALERT ORIENTED , DENIES PAIN , VSS , ON RA CLEAR LUNGS ,HE IS ON IVF SITE IS INTACT . HE HAS A DRESSING ON LOWER ABDOMEN IT DRY AND CLEAN .CONTINUE TO MONITOR
[2020-11-13] VITALS: BP 114/71
[2020-11-13] MEDS: PIPERACILLIN/TAZOBACTAM 3.375 GM in DEXTROSE 5% 50 ML IV SCH ×4 (00:47→17:23)
--- NOTE | 2020-11-13 01:04 | NUR ---
THE PT IS SLEEPING WELL , VSS , NO SIGN OF PAIN
[2020-11-13] MEDS: GAUZE TP SCH ×2 (01:06→12:40)
--- NOTE | 2020-11-13 06:35 | NUR ---
PT SLEPT WELL AFTER CONTROLING HIS PAIN , HE SIGNED THE CONSENT , HE WAS NPO AFTER MN , VSS
[2020-11-13 07:25] LABS: BASOPHILS % (AUTO) 0.6 % (0.0-2.0); EOSINOPHILS # (AUTO) 0.2 K/uL (0-0.4); EOSINOPHILS % (AUTO) 3.2 % (0.0-4.0); HEMATOCRIT 24.8 % (36-52); HEMOGLOBIN 8.7 g/dL (12.0-18.0); LYMPHOCYTES # (AUTO) 1.3 K/uL (2.0-11.5); LYMPHOCYTES % (AUTO) 25.9 % (20.5-51.1); MEAN CORPUSCULAR HEMOGLOBIN 37 pg (27-31); MEAN CORPUSCULAR HGB CONC 35 g/dL (33-37); MEAN CORPUSCULAR VOLUME 105.1 fL (80-94); MONOCYTES # (AUTO) 0.7 K/uL (0.8-1.0); MONOCYTES % (AUTO) 14.4 % (1.7-9.3); NEUTROPHILS # (AUTO) 2.9 K/uL (1.8-7.7); NEUTROPHILS % (AUTO) 55.9 % (42.2-75.2); PLATELET COUNT (AUTO) 108 K/uL (140-450); RED BLOOD CELL COUNT(AUTO) 2.36 MIL/uL (4.20-6.10); RED CELL DISTRIBUTION WIDTH 20.2 % (11.6-13.7); WHITE BLOOD COUNT (AUTO) 5.1 K/uL (4.8-10.8)
[2020-11-13 07:33] LABS: CARBON DIOXIDE 28.2 mmol/L (21-32); CREATININE 0.7 mg/dL (0.6-1.3); POTASSIUM 3.2 mmol/L (3.5-5.1)
[2020-11-13 07:51] LABS: MAGNESIUM 1.7 mg/dL (1.8-2.4); PHOSPHORUS 3.6 mg/dL (2.5-4.9)
[2020-11-13 08:00] VITALS: BP 103/54
[2020-11-13] MEDS: SPIRONOLACTONE 50 MG TAB PO SCH (09:00)
[2020-11-13] MEDS: FUROSEMIDE 40 MG/4 ML VIAL IVP SCH (09:00)
[2020-11-13] MEDS: FERROUS SULFATE 325 MG TABEC PO SCH ×2 (09:03→21:29)
[2020-11-13] MEDS: PANTOPRAZOLE 40 MG INJ VIAL IVP SCH (09:03)
--- NOTE | 2020-11-13 09:15 | NUR ---
PATIENT AWAKE AND ALERT. NO ACUTE DISTRESS NOTED. SCHEDULE MEDICATIONS GIVEN EXCEPT FOR BP MEDICATIONS DUE TO BLOOD PRESSURE BEING 103/54. ALL SAFETY MEASURES IN PLACE. CALL LIGHT WITHIN REACH. WILL CONTINUE TO MONITOR.
--- NOTE | 2020-11-13 11:53 | NUR ---
PATIENT AWAKE AND ALERT. NO ACUTE DISTRESS NOTED. PATIENT DENIES PAIN AT THIS TIME. ALL SAFETY MEASURES IN PLACE. CALL LIGHT WITHIN REACH. WILL CONTINUE TO MONITOR .
[2020-11-13] MEDS: MUPIROCIN CA NASAL 2% 1GM TUBE NS SCH (12:40)
[2020-11-13] MEDS: CHLORHEXADINE GLUC 2% CLOTH TP SCH (12:40)
--- NOTE | 2020-11-13 13:06 | NUR ---
PATIENT AWAKE AND ALERT. NO ACUTE DISTRESS NOTED. PATIENT ON ROOM AIR. SCHEDULED MEDICATION GIVEN. ALL SAFETY MEASURES IN PLACE. CALL LIGHT WITHIN REACH. WILL CONTINUE TO MONITOR.
[2020-11-13] MEDS: POTASSIUM CHLORIDE 10 MEQ TABER PO PRN (13:59)
[2020-11-13] MEDS: MAGNESIUM OXIDE 400 MG TAB PO PRN (14:00)
[2020-11-13] MEDS ORDERED: MIDAZOLAM 2 MG/2 ML VIAL ONE (15:47)
[2020-11-13] MEDS ORDERED: fentaNYL citrate 0.05 MG/ML VIAL ONE (15:47)
--- NOTE | 2020-11-13 15:47 | NUR ---
PATIENT TAKEN TO IR.
--- NOTE | 2020-11-13 16:52 | NUR ---
PATIENT BACK FROM IR.
--- NOTE | 2020-11-13 16:55 | NUR ---
PATIENT AWAKE AND ALERT. BREATHING IS EVEN AND UNLABORED. NO ACUTE DISTRESS NOTED. PATIENT DENIES PAIN AT THIS TIME. DRAINING TUBE FROM ABDOMEN. ALL SAFETY MEASURES IN PLACE. CALL LIGHT WITHIN REACH WILL CONTINUE TO MONITOR.
[2020-11-13] MEDS: HYDROcodone/APAP 5/325 MG 1 TAB TAB PO PRN (18:09)
--- NOTE | 2020-11-13 19:05 | NUR ---
ENDORSED TO DIRECTOR IT NURSE FOR CONTINUITY OF CARE. PATIENT STABLE. ALL SAFETY MEASURES IN PLACE.
--- NOTE | 2020-11-13 20:00 | NUR ---
PATIENT WAS RECEIVED AWAKE AND ALERT, NO S/S OF DISTRESS NOR GRIMACING FOR PAIN.
--- NOTE | 2020-11-13 21:00 | NUR ---
ALL DUE MEDS WERE GIVEN TOLERATED WELL
--- NOTE | 2020-11-13 21:30 | NUR ---
DUE IV MED WAS GIVEN PIGGYBACK TOLERATED WELL
[2020-11-13 23:08] LABS: APPEARANCE,SPUN,BODY FLUID CLEAR (CLEAR); APPEARANCE,UNSPUN,BODY FLUID CLEAR (CLEAR); COLOR,BODY FLUID YELLOW (LT YELLOW); SPECIMENTYPE,BODY FLUID GALL BLADDER DRAINAG; TOTAL VOLUME,BODY FLUID 5 mL
[2020-11-13 23:09] LABS: ALBUMIN,BODY FLUID 0.2 g/dL; GLUCOSE,BODY FLUID 128 mg/dL; LDH,BODY FLUID 37 U/L
[2020-11-14] VITALS: BP 96/58
[2020-11-14 00:13] LABS: POLYNUCLEAR, BODY FLUID 90 %; RBC, BODY FLUID 40 /cu. mm.; WBC, BODY FLUID 50 /cu. mm.
[2020-11-14] MEDS: GAUZE TP SCH ×2 (01:03→13:12)
[2020-11-14] MEDS: HYDROcodone/APAP 5/325 MG 1 TAB TAB PO PRN ×2 (04:54→20:00)
[2020-11-14] MEDS: PIPERACILLIN/TAZOBACTAM 3.375 GM in DEXTROSE 5% 50 ML IV SCH ×5 (06:25→17:48)
[2020-11-14 06:40] LABS: BASOPHILS % (AUTO) 0.8 % (0.0-2.0); EOSINOPHILS # (AUTO) 0.2 K/uL (0-0.4); EOSINOPHILS % (AUTO) 3.9 % (0.0-4.0); HEMATOCRIT 25.7 % (36-52); HEMOGLOBIN 9.1 g/dL (12.0-18.0); LYMPHOCYTES # (AUTO) 1.2 K/uL (2.0-11.5); LYMPHOCYTES % (AUTO) 28.1 % (20.5-51.1); MEAN CORPUSCULAR HEMOGLOBIN 37 pg (27-31); MEAN CORPUSCULAR HGB CONC 36 g/dL (33-37); MEAN CORPUSCULAR VOLUME 104.7 fL (80-94); MONOCYTES # (AUTO) 0.7 K/uL (0.8-1.0); MONOCYTES % (AUTO) 15.9 % (1.7-9.3); NEUTROPHILS # (AUTO) 2.2 K/uL (1.8-7.7); NEUTROPHILS % (AUTO) 51.3 % (42.2-75.2); PLATELET COUNT (AUTO) 109 K/uL (140-450); RED BLOOD CELL COUNT(AUTO) 2.46 MIL/uL (4.20-6.10); WHITE BLOOD COUNT (AUTO) 4.2 K/uL (4.8-10.8)
--- NOTE | 2020-11-14 07:05 | NUR ---
RECEIVED REPORT FROM FOOD ANALYST NURSE FOR CONTINUITY OF PATIENT CARE. PATIENT SLEEPING. NO ACUTE DISTRESS NOTED. PATIENT HAS L AC 20G WITH NS AT TKO. PATIENT ON ROOM AIR. ALL SAFETY MEASURES IN PLACE. CALL LIGHT WITHIN REACH WILL CONTINUE TO MONITOR
[2020-11-14 07:33] LABS: ANION GAP 8.6 (8-16); CARBON DIOXIDE 28.1 mmol/L (21-32); CREATININE 0.7 mg/dL (0.6-1.3); POTASSIUM 3.7 mmol/L (3.5-5.1)
--- NOTE | 2020-11-14 07:43 | NUR ---
ALL REPORTS WERE GIVEN, TRANSFER OF CARE ENDORSED.
[2020-11-14 08:00] VITALS: BP 106/68
[2020-11-14] MEDS: FERROUS SULFATE 325 MG TABEC PO SCH ×2 (08:29→21:00)
[2020-11-14] MEDS: SPIRONOLACTONE 50 MG TAB PO SCH (08:29)
[2020-11-14] MEDS: FUROSEMIDE 40 MG/4 ML VIAL IVP SCH (08:30)
[2020-11-14] MEDS: PANTOPRAZOLE 40 MG INJ VIAL IVP SCH (08:30)
--- NOTE | 2020-11-14 08:30 | NUR ---
PATIENT AWAKE. NO ACUTE DISTRESS NOTED. BREATHING EVEN AND UNLABORED. PATIENT ON ROOM AIR. PT RECEIVED MORNING MEDICATIONS ORDERED, TOLERATED WELL. BLOOD PRESSURE 106/74 ALL SAFETY MEASURES IN PLACE. CALL LIGHT WITHIN REACH
--- NOTE | 2020-11-14 10:30 | NUR ---
PATIENT AWAKE. NO ACUTE DISTRESS NOTED. BREATHING EVEN AND UNLABORED. PATIENT ON ROOM AIR. ALL SAFETY MEASURES IN PLACE. CALL LIGHT WITHIN REACH
[2020-11-14] MEDS: MUPIROCIN CA NASAL 2% 1GM TUBE NS SCH (13:16)
[2020-11-14] MEDS: CHLORHEXADINE GLUC 2% CLOTH TP SCH (13:16)
--- NOTE | 2020-11-14 13:44 | NUR ---
PATIENT AWAKE. NO ACUTE DISTRESS NOTED. BREATHING EVEN AND UNLABORED. PATIENT ON ROOM AIR. WOUND PICTIRES WAS TAKEN, DRESSING CHANGED. FAMILY MEMBER NEXT TO BED SIDE. ALL SAFETY MEASURES IN PLACE. CALL LIGHT WITHIN REACH
[2020-11-14] MEDS: MAGNESIUM OXIDE 400 MG TAB PO PRN (15:47)
--- NOTE | 2020-11-14 15:50 | NUR ---
PATIENT AWAKE. NO ACUTE DISTRESS NOTED. BREATHING EVEN AND UNLABORED. PATIENT ON ROOM AIR. ALL SAFETY MEASURES IN PLACE. CALL LIGHT WITHIN REACH
[2020-11-14 16:00] VITALS: BP 112/70
--- NOTE | 2020-11-14 17:50 | NUR ---
PATIENT AWAKE. NO ACUTE DISTRESS NOTED. BREATHING EVEN AND UNLABORED. PATIENT ON ROOM AIR. ALL SAFETY MEASURES IN PLACE. CALL LIGHT WITHIN REACH . TUBE DRAINAGE 100ML. FAMILY MEMBER NEXT TO BED SIDE.
--- NOTE | 2020-11-14 19:31 | NUR ---
report given to plant operator/shift supervisor rn
--- NOTE | 2020-11-14 20:00 | NUR ---
PATIENT RECEIVED IN BED AWAKE AND ALERT, NO S/S OF DISTRESS, V/S WNL.
--- NOTE | 2020-11-14 21:00 | NUR ---
ALL DUE MEDS GIVEN, TOLERATING IT WELL, C/O PAIN 08/18 NORCO 5/325 MG WAS GIVEN,
--- NOTE | 2020-11-15 | NUR ---
PATIENT WAS CALMLY ASLEEP.
[2020-11-15] MEDS: PIPERACILLIN/TAZOBACTAM 3.375 GM in DEXTROSE 5% 50 ML IV SCH ×2 (00:50→06:00)
[2020-11-15] MEDS: GAUZE TP SCH ×2 (01:00→13:26)
--- NOTE | 2020-11-15 04:18 | NUR ---
PATIENT WAS CALMLY ASLEEP.
--- NOTE | 2020-11-15 07:10 | NUR ---
RECEIVED REPORT FROM JUNIOR WEB DEVELOPER NURSE FOR CONTINUITY OF PATIENT CARE. PATIENT SLEEPING. NO ACUTE DISTRESS NOTED. PATIENT HAS L AC 20G WITH NS AT TKO. PATIENT ON ROOM AIR. ALL SAFETY MEASURES IN PLACE. CALL LIGHT WITHIN REACH WILL CONTINUE TO MONITOR
--- NOTE | 2020-11-15 07:45 | NUR ---
REPORTS WERE GIVEN, PATIENT WAS ENDORSED.
[2020-11-15 07:50] LABS: BASOPHILS % (AUTO) 0.5 % (0.0-2.0); EOSINOPHILS # (AUTO) 0.2 K/uL (0-0.4); EOSINOPHILS % (AUTO) 2.2 % (0.0-4.0); HEMATOCRIT 25.6 % (36-52); HEMOGLOBIN 9.2 g/dL (12.0-18.0); LYMPHOCYTES # (AUTO) 1.2 K/uL (2.0-11.5); LYMPHOCYTES % (AUTO) 14.5 % (20.5-51.1); MEAN CORPUSCULAR HEMOGLOBIN 37 pg (27-31); MEAN CORPUSCULAR HGB CONC 36 g/dL (33-37); MEAN CORPUSCULAR VOLUME 103.2 fL (80-94); MONOCYTES # (AUTO) 0.8 K/uL (0.8-1.0); MONOCYTES % (AUTO) 9.7 % (1.7-9.3); NEUTROPHILS # (AUTO) 5.9 K/uL (1.8-7.7); NEUTROPHILS % (AUTO) 73.1 % (42.2-75.2); PLATELET COUNT (AUTO) 95 K/uL (140-450); RED BLOOD CELL COUNT(AUTO) 2.48 MIL/uL (4.20-6.10); RED CELL DISTRIBUTION WIDTH 19.8 % (11.6-13.7); WHITE BLOOD COUNT (AUTO) 8.1 K/uL (4.8-10.8)
[2020-11-15 08:00] VITALS: BP 107/61
[2020-11-15] MEDS: FERROUS SULFATE 325 MG TABEC PO SCH (08:07)
[2020-11-15] MEDS: PANTOPRAZOLE 40 MG INJ VIAL IVP SCH (08:07)
[2020-11-15] MEDS: FUROSEMIDE 40 MG/4 ML VIAL IVP SCH (08:07)
[2020-11-15] MEDS: SPIRONOLACTONE 50 MG TAB PO SCH (08:08)
[2020-11-15] MEDS: DOCUSATE SODIUM 100 MG GELCAP PO PRN (08:08)
--- NOTE | 2020-11-15 08:10 | NUR ---
PATIENT LAYING ON BED. NO ACUTE DISTRESS NOTED. PATIENT HAS L AC 20G WITH NS AT TKO. PATIENT ON ROOM AIR. MORNING MEDICATIONS GOT ADMINISTRATED, PT TOLERATED WELL NO COMPLAINS ALL SAFETY MEASURES IN PLACE. CALL LIGHT WITHIN REACH WILL CONTINUE TO MONITOR
[2020-11-15 08:35] LABS: ALBUMIN 1.7 g/dL (3.4-5.0); ANION GAP 6.3 (8-16); CARBON DIOXIDE 27.5 mmol/L (21-32); CREATININE 0.7 mg/dL (0.6-1.3); POTASSIUM 3.8 mmol/L (3.5-5.1); TOTAL BILIRUBIN 5.6 mg/dL (0.0-1.0)
--- NOTE | 2020-11-15 10:10 | NUR ---
PATIENT LAYING ON BED. NO ACUTE DISTRESS NOTED. PATIENT ON ROOM AIR. NO COMPLAINS ALL SAFETY MEASURES IN PLACE. CALL LIGHT WITHIN REACH WILL CONTINUE TO MONITOR
[2020-11-15 11:15] LABS: MAGNESIUM 1.8 mg/dL (1.8-2.4)
[2020-11-15] MEDS ORDERED: AMOX-999 PO (11:39)
[2020-11-15] MEDS ORDERED: SPIR25TA PO (11:39)
--- NOTE | 2020-11-15 12:05 | NUR ---
PATIENT LAYING ON BED. NO ACUTE DISTRESS NOTED. PATIENT ON ROOM AIR. NO COMPLAINS, NURSE SENIOR RESERVOIR ENGINEER GOING TO TALK TO THE PT TO DISCHARGE HIM. ALL SAFETY MEASURES IN PLACE. CALL LIGHT WITHIN REACH WILL CONTINUE TO MONITOR
[2020-11-15 12:22] VITALS: BP 107/60
--- NOTE | 2020-11-15 13:21 | NUR ---
TALKED TO PATIENT ABOUT HIS DISCHARGED, I EXPLAINED THAT I WILL COME AGAIN AND TEACH THE HOW TO TAKE CARE OF HIM, BUSINESS CARD OF DR COOPER GIVEN, PER NURSE WISAL SHE HAS TAKEN THE PICTURE OF PATIENT WOUND YESTERDAY, PATIENT ALERT, AWAKE ORIENTED VERY COOPERATIVE, LUNCH SERVED.
[2020-11-15] MEDS: CHLORHEXADINE GLUC 2% CLOTH TP SCH (13:26)
[2020-11-15] MEDS: MUPIROCIN CA NASAL 2% 1GM TUBE NS SCH (13:26)
--- NOTE | 2020-11-15 14:05 | NUR ---
PATIENT LAYING ON BED. NO ACUTE DISTRESS NOTED. PATIENT ON ROOM AIR. NO COMPLAINS, NURSE EARLY CHILDHOOD TEACHER IN PT ROOM DISCHARGING HIM. ALL SAFETY MEASURES IN PLACE. CALL LIGHT WITHIN REACH WILL CONTINUE TO MONITOR
--- NOTE | 2020-11-15 14:14 | NUR ---
DISCHARGE INSTRUCTION GIVEN TO PATIENT AND , AND PT SEEN ME EMPTY THE GB DRAINAGE BAG OUTPUT 50ML DARK BROWNISH OUTPUT AND WAS INSTRUCTED HOW TO DO IT AND TO DOCUMENT AND BRING DOCUMENTATION WHEN THEY GO THE DOCTOR FOR APPOINTMENT, WOUND CARE WAS ALSO DONE ,PATIENT AND WATCHING WOUND CARE , SUPPLY WAS GIVEN X3 DAYS , TAPE, GLOVES, WOUND CLEANSER, DRESSING 4X4 AND ABDOMINAL DRESSING, SPECIMEN BOTTLE FOR EMPTYING WAS GIVEN TO THE , EVALUATED IF THEY HAVE QUESTION, PER PATIENT AND , THEY UNDERSTAND, ENDORSED TO NURSE CARON TO DISCHARGED PT, DISCHARGE PAPER WORKS GIVEN, THEY ARE AWARE THAT THEY NEED TO MAKE AN APPOINTMENT TO DR KENNETH PEARL AND THEY AGREED WITH IT.
--- NOTE | 2020-11-15 14:36 | NUR ---
WHEELED TO LOBBY WITH VIA PRIVATE CARE, ALSO BACTROBAN OINTMENT GIVEN TO APPLY TO BOTH NARES FOR TOMORROW, AGREED WITH IT, PATIENT ALERT, ORIENTED, IN GOOD CONDITION
== END 2020-11-15 14:30 | disposition home or self-care (01) | DRG 862 ==
LOC: MED 15:22 → MMU 17:23 → MTU 20:51
PROVIDERS: ADMIT Hospitalist; ATTEND Hospitalist
PROC: 0W9F3ZZ Drainage of Abdominal Wall, Percutaneous Approach (ICD-10-PCS; 2020-11-11)
PROC: 0W9G3ZZ Drainage of Peritoneal Cavity, Percutaneous Approach (ICD-10-PCS; principal; 2020-11-14)
PROC: 0F9430Z Drainage of Gallbladder with Drainage Device, Percutaneous Approach (ICD-10-PCS; 2020-11-14)
DX: T81.49XA Infection following a procedure, other surgical site, initial encounter (principal); E43 Unspecified severe protein-calorie malnutrition; L76.32 Postprocedural hematoma of skin and subcutaneous tissue following other procedure; R18.8 Other ascites; E87.1 Hypo-osmolality and hyponatremia; K76.6 Portal hypertension; K80.12 Calculus of gallbladder with acute and chronic cholecystitis without obstruction; I85.00 Esophageal varices without bleeding; L03.311 Cellulitis of abdominal wall; T81.31XA Disruption of external operation (surgical) wound, not elsewhere classified, initial encounter; E87.8 Other disorders of electrolyte and fluid balance, not elsewhere classified; E83.51 Hypocalcemia; E87.6 Hypokalemia; E83.42 Hypomagnesemia; D63.8 Anemia in other chronic diseases classified elsewhere; K72.90 Hepatic failure, unspecified without coma; E78.5 Hyperlipidemia, unspecified; Z20.822 Contact with and (suspected) exposure to COVID-19; Y83.8 Other surgical procedures as the cause of abnormal reaction of the patient, or of later complication, without mention of misadventure at the time of the procedure; F10.10 Alcohol abuse, uncomplicated; M47.816 Spondylosis without myelopathy or radiculopathy, lumbar region; I10 Essential (primary) hypertension; D69.6 Thrombocytopenia, unspecified; R16.1 Splenomegaly, not elsewhere classified; K74.60 Unspecified cirrhosis of liver; Z68.21 Body mass index [BMI] 21.0-21.9, adult; Z79.899 Other long term (current) drug therapy; Y92.89 Other specified places as the place of occurrence of the external cause
CPT/HCPCS: 36415; 75989; 76705; 77012; 78445; 80048; 80053; 82150; 82945; 83615; 83735; 84100; 84155; 84157; 85025; 85610; 85730; 87040; 87070; 87075; 87081; 87205; 89051; 96365; 96366; 96367; 99285; C1729; C9113; J1940; J2001; J2250; J2543; J3010; J3370; J3480; J7030; J7060; Q0092